=== PATIENT | female | born 1965 | race African-American/Black ===

== ENCOUNTER → 2016-06-27 | Outpatient (CLI) | payer OTHER ==
[~2016-06-27] VITALS: Ht 160 cm; Wt 94.6 kg
[~2016-06-27] MED LIST: CHOL1CAP6 PO; INSULIN HUMAN REGULAR 1,000 UNITS/10 ML VIAL ONE; LEVEMIR SQ; METF500 PO; METF500T PO; NOVOLOGP2 SQ; PROPOFOL 200 MG/20 ML AMP IV ONE; VITA10003 PO
[2016-06-27 11:58] VITALS: BP 168/74; PULSE 109; RESP 16; TEMP 97.8; O2SAT 100
[2016-06-27 13:45] VITALS: TEMP 98.6
[2016-06-27 13:55] VITALS: BP 143/66; PULSE 108; RESP 16; O2SAT 99
--- NOTE | 2016-06-28 12:21 | GIPROC ---
[facility] [address] [facility]. [facility], [address] COLONOSCOPY PROCEDURE REPORT EXAM DATE: 06/27/2016 PATIENT NAME: Cristo Will MR #: [id number] BIRTHDATE: 1965 ENDOSCOPIST: Adriana Mitchell MD ORDER #: [id number] PRIMARY CARE COORDINATOR: Lokesh Perez and Pierre Conklin STATUS: outpatient INDICATIONS: The patient is a 51 yr old female here for a colonoscopy due to patient's immediate family history of colon cancer PROCEDURE PERFORMED: Colonoscopy, diagnostic MEDICATIONS: None and Per Anesthesia. PREP QUALITY: The [place] Bowel Prep Score was Right colon 2, Mid colon 2, and Left colon 2. Total = 6. PREP TYPE:GoLytely ESTIMATED BLOOD LOSS: None CONSENT: The patient understands the risks and benefits of the procedure and understands that these risks include, but are not limited to: sedation, allergic reaction, infection, perforation and/or bleeding. Alternative means of evaluation and treatment include, among others: physical exam, x-rays, and/or surgical intervention. The patient elects to proceed with this endoscopic procedure. medical equipment was checked for proper function. Hand hygiene and appropriate measures for infection prevention was taken. After the risks, benefits and alternatives of the procedure were thoroughly explained, Informed consent was verified, confirmed and timeout was successfully executed by the treatment team. A digital exam revealed external hemorrhoids The Pentax EC-3490Li endoscope was introduced through the anus and advanced to the cecum, which was identified by both the appendix and ileocecal valve. The instrument was then slowly withdrawn as the colon was fully examined. COLON FINDINGS: The colonic mucosa appeared normal. Retroflexed views revealed internal hemorrhoids and Retroflexed views revealed small internal hemorrhoids The scope was then completely withdrawn from the patient and the procedure terminated. PROCEDURE WITHDRAWAL TIME:7minutes ADVERSE EVENTS: There were no complications. IMPRESSIONS: 1. The colonic mucosa appeared normal 2. Retroflexed views revealed internal hemorrhoids 3. Retroflexed views revealed small internal hemorrhoids 4. Revealed external hemorrhoids RECOMMENDATIONS: 1. Yearly hemoccult 2. Continue surveillance RECALL: Return 5 years Colonoscopy Adriana Mitchell MD eSigned: Adriana Mitchell MD 06/27/2016 1:46 PM cc: Mora Carpio M.D. [id number]
--- NOTE | 2016-06-28 12:21 | GIPROC ---
[facility] [address] [facility]. [facility] [place], [address] EGD PROCEDURE REPORT EXAM DATE: 06/27/2016 PATIENT NAME: Cristo Will MR #: [id number] BIRTHDATE: 1965 ATTENDING: Adriana Mitchell MD ORDER #: [id number] [employer] CLERK: Lokesh Perez and Pierre Conklin STATUS: outpatient INDICATIONS: The patient is a 51 yr old female here for an EGD due to history of esophageal reflux PROCEDURE PERFORMED: EGD w/ biopsy MEDICATIONS: None and Per Anesthesia. TOPICAL ANESTHETIC: CONSENT: The patient understands the risks and benefits of the procedure and understands that these risks include, but are not limited to: sedation, allergic reaction, infection, perforation and/or bleeding. Alternative means of evaluation and treatment include, among others: physical exam, x-rays, and/or surgical intervention. The patient elects to proceed with this endoscopic procedure. medical equipment was checked for proper function. Hand hygiene and appropriate measures for infection prevention was taken. After the risks, benefits and alternatives of the procedure were thoroughly explained, Informed consent was verified, confirmed and timeout was successfully executed by the treatment team. The patient was anesthetized with topical anesthesia and the EC-3490Li (Pedi C) endoscope was introduced through the mouth and advanced to the second portion of the duodenum. Retroflexed views revealed no abnormalities The gastroscope was then slowly withdrawn and removed. ESOPHAGUS: There was LA Class A esophagitis noted. A biopsy was performed using cold forceps. Sample sent for histology. STOMACH: There was erythematous moderate gastritis in the gastric antrum. A biopsy was performed using cold forceps. Sample sent for histology. ADVERSE EVENTS: There were no complications. IMPRESSIONS: 1. There was LA Class A esophagitis noted; biopsy was performed 2. There was erythematous gastritis in the gastric antrum; biopsy was performed 3. Retroflexed views revealed no abnormalities RECOMMENDATIONS: 1. Await biopsy results. Biopsy results will not be ready for 7-10 days. If you don't hear from us in two weeks, call our office for biopsy results. 2. Anti-reflux regimen 3. Continue PPI PATIENT CONDITION: stable DISPOSITION: Home REPEAT EXAM: Return 3 years EGD pending biopsy results Adriana Mitchell MD eSigned: Adriana Mitchell MD 06/27/2016 1:43 PM cc: Mora Carpio M.D. [id number]
== END ==
LOC: HEND 11:05
PROVIDERS: ATTEND Internal Medicine Gastroenterology
DX: Z12.11 Encounter for screening for malignant neoplasm of colon (principal); Z80.0 Family history of malignant neoplasm of digestive organs; K64.4 Residual hemorrhoidal skin tags; K64.8 Other hemorrhoids; K29.50 Unspecified chronic gastritis without bleeding; K20.9 Esophagitis, unspecified; D50.9 Iron deficiency anemia, unspecified; E11.9 Type 2 diabetes mellitus without complications
CPT/HCPCS: 00810; 43239; 45378; 82948; 88305; 88312; J1815

== ENCOUNTER 2017-03-25 14:45 | Emergency (ER) | payer OTHER ==
[~2017-03-25] VITALS: Ht 160 cm; Wt 100.0 kg
[~2017-03-25 14:45] MED LIST changes: -CHOL1CAP6 PO; -INSULIN HUMAN REGULAR 1,000 UNITS/10 ML VIAL ONE; -METF500 PO; -PROPOFOL 200 MG/20 ML AMP IV ONE
[2017-03-25 15:00] VITALS: BP 136/82; PULSE 130; RESP 20; TEMP 100; O2SAT 99
[2017-03-25] MEDS ORDERED: triseba SQ (15:30)
--- NOTE | 2017-03-25 15:59 | PD ---
HPI Chief Complaint: Cold / Flu Symptoms Time Seen by Provider: 15:47 Travel History International Travel<30 days: No Contact w/Intl Traveler<30days: No Traveled to known affect area: No History of Present Illness HPI This 51-year-old female says she's been sick for about 2 days. Says she's had a sore throat and a cough. She has vomited twice and has had some loose stools. She feels very tired and achy. She has a history of diabetes for 20 years. She does not smoke. She feels like she's had a fever at home. PFSH Past Medical History Anemia: Yes Cancer: No Cardiovascular Problems: No Diabetes: Yes Patient Takes Glucophage: No Diminished Hearing: No Endocrine: No GERD: Yes Glaucoma: No Genitourinary: No Hepatitis: No Hiatal Hernia: No Hypertension: No Immune Disorder: No Musculoskeletal: No Neurologic: No Psychiatric: No Reproductive: No Respiratory: Yes (pneumonia) Thyroid Disease: No Tetanus Vaccination: < 5 Years Influenza Vaccination: Yes ?: Not Menopausal: Yes : 0 Past Surgical History Abdominal Surgery: No AICD: No Cardiac Surgery: No Endocrine Surgery: No Genitourinary Surgery: No Gynecologic Surgery: Yes (HYSTERECTOMY IN 2007) Hysterectomy: Yes Joint Replacement: No Oral Surgery: Yes (L side [place] teeth pulled -JAN 2014) Pacemaker: No Thoracic Surgery: No Other Surgery: Yes Social History Alcohol Use: Yes (occassionally ) Tobacco Use: No Substance Use: No Allergies-Medications (Allergen,Severity, Reaction): Coded Allergies: No Known Allergies (Verified Adverse Reaction, Unknown, 03/25/17) Reported Meds & Prescriptions Reported Meds & Active Scripts Active Reported [triseba] Unit SQ WEEKLY Novolog Inj (Insulin Aspart) 1,000 Unit/10 Ml Vial 0 SQ DIRECTED Sliding Scale as directed. Metformin (Metformin HCl) 500 Mg Tab 500 Mg PO BIDPC With meals Levemir Inj (Insulin Detemir) 1,000 unit/ 10 ML Vial 60 Units SQ HS Do not mix with any other Insulin. Review of Systems General / Constitutional: Positive: Fever, Chills Eyes: No: Drainage HENT: Positive: Headaches Cardiovascular: No: Chest Pain or Discomfort Respiratory: Positive: Cough Gastrointestinal: Positive: Vomiting, Diarrhea Genitourinary: No: Urgency Musculoskeletal: Positive: Myalgias Skin: No Rash Neurologic: Positive: Weakness Endocrine: No: Heat Intolerance Hematologic/Lymphatic: No: Easy Bruising Physical Exam Narrative GENERAL: Well-developed female. Heart rate is 130 SKIN: Focused skin assessment warm/dry. HEAD: Atraumatic. Normocephalic. EYES: Pupils equal and round. No scleral icterus. No injection or drainage. ENT: No nasal bleeding or discharge. Mucous membranes pink and moist. NECK: Trachea midline. No JVD. CARDIOVASCULAR: Regular rate and rhythm. No murmur appreciated. RESPIRATORY: No accessory muscle use. Clear to auscultation. Breath sounds equal bilaterally. GASTROINTESTINAL: Abdomen soft, non-tender, nondistended. Hepatic and splenic margins not palpable. MUSCULOSKELETAL: No obvious deformities. No clubbing. No cyanosis. No edema. NEUROLOGICAL: Awake and alert. No obvious cranial nerve deficits. Motor grossly within normal limits. Normal speech. PSYCHIATRIC: Appropriate mood and affect; insight and judgment normal. Data Data Last Documented VS Vital Signs Date Time Temp Pulse Resp B/P (MAP) Pulse Ox O2 Delivery O2 Flow Rate FiO2 03/25/17 15:30 18 99 Room Air 03/25/17 15:00 100.0 130 136/82 (100) Orders Orders Sepsis Workup Initiated (03/25/17 ) Complete Blood Count With Diff (03/25/17 15:54) Comprehensive Metabolic Panel (03/25/17 15:54) Lactic Acid Sepsis Protocol (03/25/17 15:54) Urinalysis - C+S If Indicated (03/25/17 15:54) Influenzae A/B Antigen (03/25/17 15:54) Blood Culture (03/25/17 15:54) Chest, Single Ap (03/25/17 15:54) Blood Glucose (03/25/17 15:54) Ecg Monitoring (03/25/17 15:54) Iv Access Insert/Monitor (03/25/17 15:54) Oximetry (03/25/17 15:54) Oxygen Administration (03/25/17 15:54) Ondansetron Inj (Zofran Inj) (03/25/17 16:00) Sodium Chlor 0.9% 1000 Ml Inj (Ns 1000 M (03/25/17 16:00) Sodium Chlor 0.9% 1000 Ml Inj (Ns 1000 M (03/25/17 16:00) Acetaminophen (Tylenol) (03/25/17 16:00) MDM Medical Decision Making Medical Screen Exam Complete: Yes Emergency Medical Condition: Yes Medical Record Reviewed: Yes Differential Diagnosis Differential includes influenza, pneumonia, sepsis Narrative Course Initial workup and IV fluids have been ordered Tavo Murcia MD Mar 25, 2017 15:59
[2017-03-25] MEDS ORDERED: ACETAMINOPHEN 325 MG TAB PO ONE (16:00)
[2017-03-25] MEDS ORDERED: SODIUM CHLOR 0.9% 1000 ML INJ 1,000 ML IV ONE ×2 (16:00)
[2017-03-25] MEDS ORDERED: ONDANSETRON HCL 4 MG/2 ML VIAL IV PUSH ONE (16:00)
[2017-03-25 16:10] VITALS: O2SAT 98
--- NOTE | 2017-03-25 16:33 | PD ---
Physical Exam Narrative Patient was seen by ED physician and signed out to me. Data Data Last Documented VS Vital Signs Date Time Temp Pulse Resp B/P (MAP) Pulse Ox O2 Delivery O2 Flow Rate FiO2 03/25/17 17:29 114 18 188/73 (111) 94 03/25/17 16:10 Room Air 03/25/17 15:00 100.0 Orders Orders Sepsis Workup Initiated (03/25/17 ) Complete Blood Count With Diff (03/25/17 15:54) Comprehensive Metabolic Panel (03/25/17 15:54) Lactic Acid Sepsis Protocol (03/25/17 15:54) Urinalysis - C+S If Indicated (03/25/17 15:54) Influenzae A/B Antigen (03/25/17 15:54) Blood Culture (03/25/17 15:54) Chest, Single Ap (03/25/17 15:54) Blood Glucose (03/25/17 15:54) Ecg Monitoring (03/25/17 15:54) Iv Access Insert/Monitor (03/25/17 15:54) Oximetry (03/25/17 15:54) Oxygen Administration (03/25/17 15:54) Ondansetron Inj (Zofran Inj) (03/25/17 16:00) Sodium Chlor 0.9% 1000 Ml Inj (Ns 1000 M (03/25/17 16:00) Sodium Chlor 0.9% 1000 Ml Inj (Ns 1000 M (03/25/17 16:00) Acetaminophen (Tylenol) (03/25/17 16:00) Chest, Single Ap (03/25/17 17:21) Labs Laboratory Tests Test 03/25/17 16:20 03/25/17 16:52 03/25/17 17:15 Blood Urea Nitrogen 13 MG/DL Creatinine 0.74 MG/DL Random Glucose 133 MG/DL Total Protein 7.5 GM/DL Albumin 3.1 GM/DL Calcium Level 8.6 MG/DL Alkaline Phosphatase 137 U/L Aspartate Amino Transf (AST/SGOT) 42 U/L Alanine Aminotransferase (ALT/SGPT) 72 U/L Total Bilirubin 0.3 MG/DL Sodium Level 140 MEQ/L Potassium Level 3.6 MEQ/L Chloride Level 106 MEQ/L Carbon Dioxide Level 23.9 MEQ/L Anion Gap 10 MEQ/L Estimat Glomerular Filtration Rate 101 ML/MIN White Blood Count 10.0 TH/MM3 Red Blood Count 4.61 MIL/MM3 Hemoglobin 10.8 GM/DL Hematocrit 33.8 % Mean Corpuscular Volume 73.4 FL Mean Corpuscular Hemoglobin 23.3 PG Mean Corpuscular Hemoglobin Concent 31.8 % Red Cell Distribution Width 15.0 % Platelet Count 338 TH/MM3 Mean Platelet Volume 8.3 FL Neutrophils (%) (Auto) 83.1 % Lymphocytes (%) (Auto) 8.6 % Monocytes (%) (Auto) 7.3 % Eosinophils (%) (Auto) 0.6 % Basophils (%) (Auto) 0.4 % Neutrophils # (Auto) 8.3 TH/MM3 Lymphocytes # (Auto) 0.9 TH/MM3 Monocytes # (Auto) 0.7 TH/MM3 Eosinophils # (Auto) 0.1 TH/MM3 Basophils # (Auto) 0.0 TH/MM3 CBC Comment AUTO DIFF Differential Comment AUTO DIFF CONFIRMED Lactic Acid Level 1.3 mmol/L Urine Color YELLOW Urine Turbidity CLEAR Urine pH 8.0 Urine Specific [place] 1.021 Urine Protein TRACE mg/dL Urine Glucose (UA) NEG mg/dL Urine Ketones NEG mg/dL Urine Occult Blood NEG Urine Nitrite NEG Urine Bilirubin NEG Urine Leukocyte Esterase NEG Urine RBC 0-3 /hpf Urine WBC 0-2 /hpf Urine Squamous Epithelial Cells 0-5 /hpf Microscopic Urinalysis Comment CATH-CULT NOT IND MDM Supervised Visit with KENNETH: No Interpretation(s) Last Impressions Chest X-Ray 03/25/17 1554 Signed Impressions: Service Date/Time: Saturday, March 25, 2017 16:24 - CONCLUSION: Hypoaerated lungs with minimal right midlung airspace disease. Arash Alcantar MD 1722 PM. CBC with WBC 10.0. Hemoglobin 10.8 hematocrit 33.8. MCV 73.4. 83 neutrophil. CMP within normal limit. Lactic acid 1.3. LFTs mildly elevated. Influenza AB antigen negative. 1752 PM. Repeat chest x-ray shows hypoaerated lungs without consolidation. UA is negative. Diagnosis Primary Impression: Viral syndrome Patient Instructions: General Instructions Additional Instruction: Tylenol and Advil as needed for headache, fever, aching pain. [id number] cough medication as needed. Follow-up with personal physician. Return if persistent problem or worse. Z-Alexey if persistent productive cough Scripts Azithromycin (Zithromax Z-Alexey) 250 Mg Dspk 250 MG PO DIRECTED for Infection, #1 DSPK 0 Refills 500 MG (2 tabs) day 1, then 1 tab days 2-5. Prov: Abdiel Gandhi MD 03/25/17 Disposition: 01 DISCHARGE HOME Condition: Stable Abdiel Gandhi MD Mar 25, 2017 16:33
[2017-03-25 16:39] LABS: CHLORIDE 106 MEQ/L (98-107); POTASSIUM 3.6 MEQ/L (3.5-5.1); SODIUM (NA) 140 MEQ/L (136-145)
[2017-03-25 16:43] LABS: ANION GAP 10 MEQ/L (5-15); BICARBONATE 23.9 MEQ/L (21.0-32.0)
[2017-03-25 16:44] LABS: BLOOD UREA NITROGEN 13 MG/DL (7-18)
--- NOTE | 2017-03-25 16:45 | RADRPT ---
EXAM DATE/TIME: 03/25/2017 16:24 [facility] COMPARISON: CHEST SINGLE AP, January 26, 2014, 23:48. INDICATIONS : Fever, cough. MEDICAL HISTORY : None. SURGICAL HISTORY : None. ENCOUNTER: Initial ACUITY: 1 day PAIN SCORE: 0/10 LOCATION: Bilateral chest FINDINGS: The lungs are hypoaerated. Subsegmental airspace disease is identified in the right midlung. Left dexter g appears clear. Heart and mediastinal structures appear stable. CONCLUSION: Hypoaerated lungs with minimal right midlung airspace disease. Arash Alcantar MD on March 25, 2017 at 16:41 Board Certified Radiologist. This report was verified electronically.
[2017-03-25 16:46] LABS: ALT (GPT) 72 U/L (10-53); AST (GOT) 42 U/L (15-37)
[2017-03-25 16:47] LABS: GLOMERULAR FILTRATION RATE 101 ML/MIN (>89); TOTAL BILIRUBIN ADULT 0.3 MG/DL (0.2-1.0)
[2017-03-25 16:48] LABS: ALKALINE PHOSPHATASE 137 U/L (45-117)
[2017-03-25 17:03] LABS: AUTOMATED NEUTROPHIL # 8.3 TH/MM3 (1.8-7.7); BASOPHIL % 0.4 % (0.0-2.0); EOSINOPHIL # 0.1 TH/MM3 (0-0.4); EOSINOPHIL % 0.6 % (0.0-4.0); HEMATOCRIT 33.8 % (35.0-46.0); LYMPH % 8.6 % (9.0-44.0); LYMPHOCYTE # 0.9 TH/MM3 (1.0-4.8); MEAN CELL VOLUME 73.4 FL (80.0-100.0); MEAN CORPUSCULAR HEMOGLOBIN 23.3 PG (27.0-34.0); MEAN CORPUSCULAR HGB CONC 31.8 % (32.0-36.0); MONO % 7.3 % (0.0-8.0); NEUT % 83.1 % (16.0-70.0); PLATELET COUNT 338 TH/MM3 (150-450); RED BLOOD COUNT 4.61 MIL/MM3 (4.00-5.30)
[2017-03-25 17:08] LABS: HEMO FLAGS AUTO DIFF
[2017-03-25 17:29] VITALS: BP 188/73; PULSE 114; RESP 18; O2SAT 94
[2017-03-25 17:36] LABS: BLOOD, URINE NEG (NEG); GLUCOSE,URINE NEG (NEG); KETONE, URINE NEG (NEG); NITRITE,URINE NEG (NEG)
[2017-03-25 17:41] LABS: URINE COLOR YELLOW (YELLW/STRAW)
[2017-03-25 17:42] LABS: COMMENT (UR) CATH-CULT NOT IND; CULTURE IF INDICATED CATH CULTURE NOT IND; RBC, URINE 0-3 /hpf (0-3); SQUAMOUS EPITHELIAL CELL URINE 0-5 /hpf (0-5); WBC, URINE 0-2 /hpf (0-5)
[2017-03-25 17:45] LABS: SCAN/DIFF AUTO DIFF CONFIRMED
--- NOTE | 2017-03-25 17:46 | RADRPT ---
EXAM DATE/TIME: 03/25/2017 17:30 [facility] COMPARISON: CHEST SINGLE AP, March 25, 2017, 16:24. INDICATIONS : Evaluate for pneumonia - fever. MEDICAL HISTORY : None. SURGICAL HISTORY : None. ENCOUNTER: Subsequent ACUITY: 1 day PAIN SCORE: 0/10 LOCATION: Bilateral chest FINDINGS: A single view of the chest demonstrates the lungs to be symmetrically, but under aerated with no acut e infiltrate. Heart size is borderline but well compensated. Degenerative spurring at multiple dorsal levels. CONCLUSION: Hypoinflation with no acute cardiopulmonary process. jS Lino MD on March 25, 2017 at 17:41 Board Certified Radiologist. This report was verified electronically.
[2017-03-25 18:00] VITALS: TEMP 99.3
[2017-03-25] MEDS ORDERED: ZITHTAB PO (18:00)
== END 2017-03-25 18:46 | disposition home or self-care (01) ==
LOC: PHED 14:45
DX: B34.9 Viral infection, unspecified (principal); E11.9 Type 2 diabetes mellitus without complications; Z79.4 Long term (current) use of insulin
CPT/HCPCS: 71010; 80053; 81001; 83605; 85025; 87040; 87804; 96361; 96374; 99284; J2405; J7030

== ENCOUNTER 2017-04-03 16:44 | Inpatient (IN) | payer OTHER ==
[~2017-04-03] VITALS: Ht 160 cm; Wt 100.6 kg
[~2017-04-03 16:44] MED LIST changes: -VITA10003 PO; +ZITHTAB PO; +triseba SQ
[2017-04-03 17:07] VITALS: BP 198/87; PULSE 108; RESP 22; TEMP 97.1; O2SAT 97
[2017-04-03 20:11] VITALS: BP 201/84
[2017-04-03] MEDS ORDERED: SODIUM CHLOR 0.9% 1000 ML INJ 1,000 ML IV ONE ×2 (20:22→20:52)
[2017-04-03] MEDS ORDERED: METOCLOPRAMIDE HCL 10 MG/2 ML VIAL IV PUSH ONE (20:30)
[2017-04-03] MEDS ORDERED: KETOROLAC TROMETHAMINE 30 MG/ML (IVP) VIAL IV PUSH ONE (20:30)
[2017-04-03 21:36] LABS: AUTOMATED NEUTROPHIL # 13.4 TH/MM3 (1.8-7.7); BASOPHIL % 0.3 % (0.0-2.0); EOSINOPHIL % 0.1 % (0.0-4.0); HEMATOCRIT 31.2 % (35.0-46.0); HEMOGLOBIN 9.9 GM/DL (11.6-15.3); LYMPH % 8.3 % (9.0-44.0); LYMPHOCYTE # 1.3 TH/MM3 (1.0-4.8); MEAN CORPUSCULAR HEMOGLOBIN 23.7 PG (27.0-34.0); MEAN CORPUSCULAR HGB CONC 31.6 % (32.0-36.0); MEAN PLATELET VOLUME 8.6 FL (7.0-11.0); MONO % 4.7 % (0.0-8.0); MONOCYTE # 0.7 TH/MM3 (0-0.9); NEUT % 86.6 % (16.0-70.0); PLATELET COUNT 385 TH/MM3 (150-450); RED BLOOD COUNT 4.16 MIL/MM3 (4.00-5.30); RED CELL DISTRIBUTION WIDTH 16.1 % (11.6-17.2); WHITE BLOOD COUNT 15.5 TH/MM3 (4.0-11.0)
[2017-04-03 21:45] LABS: INTERNATIONAL NORMALIZED RATIO 1.1 RATIO; PROTHROMBIN TIME - PATIENT 10.9 SEC (9.8-11.6)
[2017-04-03 21:55] LABS: ALBUMIN 3.2 GM/DL (3.4-5.0); ALT (GPT) 36 U/L (10-53); AST (GOT) 13 U/L (15-37); BICARBONATE 20.3 MEQ/L (21.0-32.0); BLOOD UREA NITROGEN 17 MG/DL (7-18); CHLORIDE 107 MEQ/L (98-107); CREATININE 0.86 MG/DL (0.50-1.00); GLOMERULAR FILTRATION RATE 85 ML/MIN (>89); GLUCOSE,RANDOM 193 MG/DL (74-106); SODIUM (NA) 139 MEQ/L (136-145)
[2017-04-03 21:58] LABS: ALKALINE PHOSPHATASE 121 U/L (45-117); TOTAL BILIRUBIN ADULT 0.2 MG/DL (0.2-1.0); TOTAL PROTEIN 7.9 GM/DL (6.4-8.2)
[2017-04-03 22:13] LABS: BILIRUBIN, URINE NEG (NEG); BLOOD, URINE NEG (NEG); GLUCOSE,URINE NEG (NEG); KETONE, URINE 10 mg/dL (NEG); MUCUS URINE FEW /lpf (OCC); NITRITE,URINE NEG (NEG); PH, URINE 6.5 (5.0-8.5); SQUAMOUS EPITHELIAL CELL URINE 1 /hpf (0-5); URINE COLOR YELLOW (YELLW/STRAW); URINE LEUKOCYTE ESTERASE NEG (NEG)
[2017-04-03 22:17] VITALS: PULSE 84; RESP 18; O2SAT 97
[2017-04-03 22:34] VITALS: BP 174/77; PULSE 120; RESP 18; O2SAT 97
--- NOTE | 2017-04-03 23:18 | RADRPT ---
EXAM DATE/TIME: 04/03/2017 22:02 [facility] COMPARISON: No previous studies available for comparison. INDICATIONS : Cephalgia. RADIATION DOSE: 56.35 CTDIvol (mGy) MEDICAL HISTORY : None SURGICAL HISTORY : Hysterectomy. ENCOUNTER: Initial ACUITY: 1 day PAIN SCALE: 3/10 LOCATION: Bilateral cranial TECHNIQUE: Multiple contiguous axial images were obtained of the head. Using automated exposure control and adj ustment of the mA and/or kV according to patient size, radiation dose was kept as low as reasonably a chievable to obtain optimal diagnostic quality images. DICOM format image data is available electro nically for review and comparison. FINDINGS: CEREBRUM: The ventricles are normal for age. No evidence of midline shift, mass lesion, hemorrhage or acute in farction. No extra-axial fluid collections are seen. POSTERIOR FOSSA: The cerebellum and brainstem are intact. The 4th ventricle is midline. The cerebellopontine angle i s unremarkable. EXTRACRANIAL: The visualized portion of the orbits is intact. Air-fluid level in the left sphenoid sinus. SKULL: The calvaria is intact. No evidence of skull fracture. CONCLUSION: 1. No acute findings in the brain. 2. Left sphenoid sinus disease. Brandon Pope MD on April 03, 2017 at 23:15 Board Certified Radiologist. This report was verified electronically.
[2017-04-03] MEDS ORDERED: MORPHINE SULFATE 2 MG/ML INJ IV PUSH ONE (23:45)
[2017-04-04] VITALS (7 sets, daily range): BP systolic 131–187; BP diastolic 63–91; PULSE 110–119; RESP 16–24; TEMP 97.6–99.9; O2SAT 95–100
[2017-04-04] MEDS ORDERED: cefTRIAXone INJ 2,000 MG in SODIUM CHLORIDE 0.9% INJ 100 ML IV ONE (00:15)
[2017-04-04] MEDS ORDERED: ACYCLOVIR INJ 500 MG in SODIUM CHLORIDE 0.9% INJ 100 ML IV ONE (00:15)
[2017-04-04] MEDS ORDERED: VANCOMYCIN INJ 1,000 MG in SODIUM CHLOR 0.9% 250 ML INJ 250 ML IV ONE (00:15)
--- NOTE | 2017-04-04 00:15 | PD ---
HPI Chief Complaint: Headache Time Seen by Provider: 20:17 Travel History International Travel<30 days: No Contact w/Intl Traveler<30days: No Traveled to known affect area: No History of Present Illness HPI 51-year-old female with history of diabetes, hypertension, brought in by ambulance for evaluation of severe headache. Patient reports that the headache started suddenly at around 3:00 PM. She is complaining of severe diffuse head pressure as well as neck stiffness. Pain is constant, worse with movements, associated with photophobia and nausea. She has not vomited. She is unsure if she has had fever. She was seen in the Emergency Department 9 days ago and was diagnosed with a viral illness. She does not usually get headaches and has no history of migraines. No IVDU. PFSH Past Medical History Anemia: Yes Cancer: No Cardiovascular Problems: No Diabetes: Yes (METFORMIN) Patient Takes Glucophage: Yes Diminished Hearing: No Endocrine: No GERD: Yes Glaucoma: No Genitourinary: No Hepatitis: No Hiatal Hernia: No Hypertension: No Immune Disorder: No Medical other: No Musculoskeletal: No Neurologic: No Psychiatric: No Reproductive: No Respiratory: Yes (pneumonia) Thyroid Disease: No Tetanus Vaccination: Unknown Influenza Vaccination: Yes ?: Not Menopausal: Yes : 0 Past Surgical History Abdominal Surgery: No AICD: No Cardiac Surgery: No Endocrine Surgery: No Genitourinary Surgery: No Gynecologic Surgery: Yes (HYSTERECTOMY IN 2007) Hysterectomy: Yes Joint Replacement: No Oral Surgery: Yes (L side [place] teeth pulled -JAN 2014) Pacemaker: No Thoracic Surgery: No Other Surgery: Yes Social History Alcohol Use: Yes (occassionally ) Tobacco Use: No Substance Use: No Allergies-Medications (Allergen,Severity, Reaction): Coded Allergies: No Known Allergies (Verified Adverse Reaction, Unknown, 04/03/17) Reported Meds & Prescriptions Reported Meds & Active Scripts Active Zithromax Z-Alexey (Azithromycin) 250 Mg Dspk 250 Mg PO DIRECTED 500 MG (2 tabs) day 1, then 1 tab days 2-5. Reported [triseba] Unit SQ WEEKLY Novolog Inj (Insulin Aspart) 1,000 Unit/10 Ml Vial 0 SQ DIRECTED Sliding Scale as directed. Metformin (Metformin HCl) 500 Mg Tab 500 Mg PO BIDPC With meals Levemir Inj (Insulin Detemir) 1,000 unit/ 10 ML Vial 60 Units SQ HS Do not mix with any other Insulin. Review of Systems Except as stated in HPI: all other systems reviewed are Neg Physical Exam Narrative GENERAL: Well-developed, well-nourished, overweight, moderate distress secondary to pain. SKIN: Focused skin assessment warm/dry. No rash. HEAD: Atraumatic. Normocephalic. EYES: Pupils equal and round. No scleral icterus. No injection or drainage. ENT: Mucous membranes pink and moist. NECK: Trachea midline. No JVD. Moderate nuchal rigidity. CARDIOVASCULAR: Tachycardic, rate 115, regular. No murmur. RESPIRATORY: No accessory muscle use. Clear to auscultation. Breath sounds equal bilaterally. GASTROINTESTINAL: Abdomen soft, non-tender, nondistended. MUSCULOSKELETAL: No obvious deformities. No clubbing. No cyanosis. No edema. NEUROLOGICAL: Awake and alert. No obvious cranial nerve deficits. Motor grossly within normal limits. Normal speech. PSYCHIATRIC: Appropriate mood and affect; insight and judgment normal. Data Data Last Documented VS Vital Signs Date Time Temp Pulse Resp B/P (MAP) Pulse Ox O2 Delivery O2 Flow Rate FiO2 04/03/17 22:34 120 18 174/77 (109) 97 04/03/17 22:17 Room Air 04/03/17 17:07 97.1 Orders Orders Complete Blood Count With Diff (04/03/17 20:22) Comprehensive Metabolic Panel (04/03/17 20:22) Beta Hydroxybutyrate (Acetone) (04/03/17 20:22) Urinalysis - C+S If Indicated (04/03/17 20:22) Ecg Monitoring (04/03/17 20:22) Iv Access Insert/Monitor (04/03/17 20:22) Oximetry (04/03/17 20:22) NPO (04/03/17 20:22) Sodium Chlor 0.9% 1000 Ml Inj (Ns 1000 M (04/03/17 20:22) Sodium Chlor 0.9% 1000 Ml Inj (Ns 1000 M (04/03/17 20:52) Sodium Chloride 0.9% Flush (Ns Flush) (04/03/17 20:30) Ct Brain W/O Iv Contrast(Rout) (04/03/17 ) Metoclopramide Inj (Reglan Inj) (04/03/17 20:30) Ketorolac Inj (Toradol Inj) (04/03/17 20:30) Prothrombin Time / Inr (Pt) (04/03/17 20:22) Act Partial Throm Time (Ptt) (04/03/17 20:22) Influenzae A/B Antigen (04/03/17 20:24) Beta Hcg (Quant/Titer) (04/03/17 20:25) Morphine Inj (Morphine Inj) (04/03/17 23:45) Ceftriaxone Inj (Rocephin Inj) (04/04/17 00:15) Vancomycin Inj (Vancomycin Inj) (04/04/17 00:15) Acyclovir Inj (Zovirax Inj) (04/04/17 00:15) Admit Order (Ed Use Only) (04/04/17 00:18) Labs Laboratory Tests Test 04/03/17 21:15 04/03/17 22:00 White Blood Count 15.5 TH/MM3 Red Blood Count 4.16 MIL/MM3 Hemoglobin 9.9 GM/DL Hematocrit 31.2 % Mean Corpuscular Volume 75.0 FL Mean Corpuscular Hemoglobin 23.7 PG Mean Corpuscular Hemoglobin Concent 31.6 % Red Cell Distribution Width 16.1 % Platelet Count 385 TH/MM3 Mean Platelet Volume 8.6 FL Neutrophils (%) (Auto) 86.6 % Lymphocytes (%) (Auto) 8.3 % Monocytes (%) (Auto) 4.7 % Eosinophils (%) (Auto) 0.1 % Basophils (%) (Auto) 0.3 % Neutrophils # (Auto) 13.4 TH/MM3 Lymphocytes # (Auto) 1.3 TH/MM3 Monocytes # (Auto) 0.7 TH/MM3 Eosinophils # (Auto) 0.0 TH/MM3 Basophils # (Auto) 0.0 TH/MM3 CBC Comment DIFF FINAL Differential Comment Prothrombin Time 10.9 SEC Prothromb Time International Ratio 1.1 RATIO Activated Partial Thromboplast Time 24.7 SEC Blood Urea Nitrogen 17 MG/DL Creatinine 0.86 MG/DL Random Glucose 193 MG/DL Total Protein 7.9 GM/DL Albumin 3.2 GM/DL Calcium Level 9.0 MG/DL Alkaline Phosphatase 121 U/L Aspartate Amino Transf (AST/SGOT) 13 U/L Alanine Aminotransferase (ALT/SGPT) 36 U/L Total Bilirubin 0.2 MG/DL Sodium Level 139 MEQ/L Potassium Level 3.7 MEQ/L Chloride Level 107 MEQ/L Carbon Dioxide Level 20.3 MEQ/L Anion Gap 12 MEQ/L Estimat Glomerular Filtration Rate 85 ML/MIN Human Chorionic Gonadotropin, Quant 3 MIU/ML B-Hydroxybutyrate 0.21 MMOL/L Urine Color YELLOW Urine Turbidity HAZY Urine pH 6.5 Urine Specific [place] 1.026 Urine Protein 30 mg/dL Urine Glucose (UA) NEG mg/dL Urine Ketones 10 mg/dL Urine Occult Blood NEG Urine Nitrite NEG Urine Bilirubin NEG Urine Urobilinogen LESS THAN 2.0 MG/DL Urine Leukocyte Esterase NEG Urine RBC 2 /hpf Urine WBC 2 /hpf Urine Squamous Epithelial Cells 1 /hpf Urine Mucus FEW /lpf Microscopic Urinalysis Comment CULT NOT INDICATED MDM Medical Decision Making Medical Screen Exam Complete: Yes Emergency Medical Condition: Yes Medical Record Reviewed: Yes Differential Diagnosis Viral meningitis, bacterial meningitis, SAH, tension headache, cluster headache , migraine headache, intracranial abnormality, hypertensive crisis Narrative Course Initial vital signs show heart rate 108, blood pressure 198/87, pulse ox 97% on room air, oral temp of 97.1F. Repeat vital signs after 2 L of normal saline IV, IV Reglan, and IV Toradol show heart rate of 120, blood pressure 174/77, pulse ox 97% on room air. CBC: WBC 15.5, hemoglobin 9.9, hematocrit 31.2, platelets 35, neutrophils 87%. CMP is remarkable for random glucose 193, bicarbonate 20.3, otherwise unremarkable. Beta hydroxybutyrate is 0.21. Coags are normal. UA shows 30 protein, 10 ketones, not suggestive of UTI. Influenza is negative. CT head: No acute findings in the brain. Left sphenoid sinus disease. Patient and the patient's family were made aware of all findings. The patient was given IV Toradol, IV Reglan, and 2 L normal saline IV. She states her headache has improved, however is still present, yet mild. States that her neck stiffness is the same and is severe. I explained to her that the next step in her workup would be a lumbar puncture to evaluate for possible meningitis or subarachnoid hemorrhage. This was discussed in detail with the patient and the patient's family and she agrees to proceed with the procedure. I was unsuccessful in performing this procedure, likely secondary to the patient 's body habitus, making palpation of landmarks very difficult. Plan at this point is to start the patient on empiric coverage for meningitis with IV Rocephin, IV vancomycin, and IV acyclovir, and have her admitted for further treatment and evaluation of intractable headache, intractable neck stiffness, rule out meningitis. Case discussed with [facility] hospitalist Dr. Millard. The patient will be admitted to their service under Dr. Fry. Procedures Procedure Narrative Lumbar puncture: Informed consent obtained. LUMBAR PUNCTURE: The patient was placed in the left lateral decubitus position. The lumbar area of the back was prepped with Betadine and sterilely draped. The L3 -- L4 interspace was infiltrated with 1% lidocaine plain. Number 24 gauge LP needle was used to attempt this procedure. 3 attempts were made without success. Diagnosis Primary Impression: Intractable headache Qualified Codes: R51 - Headache Additional Impressions: Neck stiffness Leukocytosis Qualified Codes: D72.829 - Elevated white blood cell count, unspecified Rule out meningitis Admitting Information Admitting Physician Requests: Admit Aaron Maki MD Apr 04, 2017 00:15
[2017-04-04] MEDS ORDERED: Vancomycin Consult Pharmacy 1 EA OTHER SCH (00:30)
[2017-04-04] MEDS ORDERED: GLUCAGON 1 MG/ML VIAL OTHER PRN (00:45)
[2017-04-04] MEDS ORDERED: VANCOMYCIN INJ 2,000 MG in SODIUM CHLORID 0.9% 500 ML INJ 500 ML IV ONE ×2 (00:45→04:00)
[2017-04-04] MEDS ORDERED: DEXTROSE 50% IN WATER 50 ML VIAL(D50) IV PUSH PRN (00:45)
[2017-04-04] MEDS ORDERED: ACYCLOVIR INJ 1,000 MG in SODIUM CHLORIDE 0.9% INJ 150 ML IV SCH ×2 (02:00→08:00)
[2017-04-04] MEDS: KETOROLAC TROMETHAMINE 30 MG/ML (IVP) VIAL IV PUSH PRN ×2 (06:32→08:19)
--- NOTE | 2017-04-04 08:20 | HHI.HP ---
HPI Service [facility] Hospitalists Primary Care Physician Mora Carpio MD Admission Diagnosis Intractable headache/neck stiffness, leukocytosis Chief Complaint: Severe Headache and neck stiffness Travel History International Travel<30 Days: No Contact w/Intl Traveler <30 Da: No Traveled to Known Affected Are: No History of Present Illness This is a 51-year-old female patient with past medical history which includes diabetes mellitus on insulin and pills, GERD, obesity and anemia. Patient was brought in by ambulance for evaluation of severe headache. Patient reports that the headache started suddenly at around 3:00 PM on 04/03/2017. She reported severe diffuse head pressure as well as neck stiffness. Pain is constant, worse with movements, associated with photophobia and nausea. She is unsure if she has had fever. She was seen in the Emergency Department 9 days ago and was diagnosed with a viral illness. At that time patient had chills, fever, nausea and vomiting. She does not usually get headaches and has no history of migraines. 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 Review of Systems Constitutional: COMPLAINS OF: Fever, Chills, DENIES: Fatigue Eyes: DENIES: Blurred vision, Diplopia, Vision loss Respiratory: DENIES: Cough, Sputum production, Shortness of breath Cardiovascular: DENIES: Chest pain, Palpitations, Dyspnea on Exertion, Lower Extremity Edema Gastrointestinal: DENIES: Abdominal pain, Constipation, Diarrhea, Vomiting Musculoskeletal: COMPLAINS OF: Neck pain Neurologic: COMPLAINS OF: Headache, DENIES: Abnormal gait, Localized weakness Psychiatric: DENIES: Anxiety, Confusion, Depression Past Family Social History Past Medical History diabetes mellitus on insulin and pills, GERD, obesity and anemia Past Surgical History Hysterectomy and oral surgery with tooth extraction Reported Medications Zithromax Z-Alexey (Azithromycin) 250 Mg Dspk 250 Mg PO DIRECTED 500 MG (2 tabs) day 1, then 1 tab days 2-5. [triseba] Unit SQ WEEKLY Novolog Inj (Insulin Aspart) 1,000 Unit/10 Ml Vial 0 SQ DIRECTED Sliding Scale as directed. Metformin (Metformin HCl) 500 Mg Tab 500 Mg PO BIDPC With meals Levemir Inj (Insulin Detemir) 1,000 unit/ 10 ML Vial 60 Units SQ HS Do not mix with any other Insulin. Allergies: Coded Allergies: No Known Allergies (Verified Allergy, Unknown, 04/05/17) Active Ordered Medications Current Medications Medications (Trade) Dose Ordered Sig/Jered Route Start Time Stop Time Status Last Admin (NS Flush) 2 ml UNSCH PRN IVF 04/03/17 20:30 Pharmacy Profile Note 0 ml @ 0 mls/hr UNSCH OTHER 04/04/17 00:30 Ceftriaxone Sodium 2000 mg/ Sodium Chloride 100 ml @ 200 mls/hr Q24H IV 04/05/17 01:00 (Toradol Inj) 30 mg Q6H PRN IV PUSH 04/04/17 00:45 04/09/17 00:44 04/04/17 06:32 (D50w (Vial) Inj) 50 ml UNSCH PRN IV PUSH 04/04/17 00:45 (Glucagon Inj) 1 mg UNSCH PRN OTHER 04/04/17 00:45 (NovoLOG SUPPLEMENTAL SCALE) 1 ACHS SLIDING SCALE SQ 04/04/17 08:00 Acyclovir Sodium 1000 mg/Sodium Chloride 150 ml @ 150 mls/hr Q8H IV 04/04/17 10:00 Family History Reviewed and noncontributory Social History Patient denies EtOH use tobacco use or illicit drug use Physical Exam Vital Signs Vital Signs Date Time Temp Pulse Resp B/P (MAP) Pulse Ox O2 Delivery O2 Flow Rate FiO2 04/04/17 04:22 110 16 158/73 (101) 97 04/04/17 01:03 99.8 116 16 174/78 (110) 98 04/03/17 22:34 120 18 174/77 (109) 97 04/03/17 22:17 84 18 97 Room Air 04/03/17 20:11 201/84 (123) 04/03/17 17:07 97.1 108 22 198/87 (124) 97 Physical Exam GENERAL: This is a well-nourished, well-developed patient SKIN: No rashes, ecchymoses or lesions. Cool and dry. HEAD: Atraumatic. Normocephalic. No temporal or scalp tenderness. EYES: Pupils equal round and reactive. Extraocular motions intact. No scleral icterus. No injection or drainage. ENT: Nose without bleeding, purulent drainage or septal hematoma. Throat without erythema, tonsillar hypertrophy or exudate. Uvula midline. Airway patent. NECK: Trachea midline. No JVD or lymphadenopathy. Supple, nontender, no meningeal signs. Kernig's sign negative CARDIOVASCULAR: Regular rate and rhythm RESPIRATORY: Clear to auscultation. Breath sounds equal bilaterally. GASTROINTESTINAL: Abdomen soft, non-tender, nondistended. No hepato-splenomegaly , or palpable masses. No guarding. MUSCULOSKELETAL: Extremities without clubbing, cyanosis, or edema. No joint tenderness, effusion, or edema noted. No calf tenderness. Negative Homans sign bilaterally. NEUROLOGICAL: Awake and alert. No focal deficits. Motor and sensory grossly within normal limits. Five out of 5 muscle strength in all muscle groups. Normal speech. Laboratory Laboratory Tests Test 04/03/17 21:15 04/03/17 22:00 White Blood Count 15.5 Red Blood Count 4.16 Hemoglobin 9.9 Hematocrit 31.2 Mean Corpuscular Volume 75.0 Mean Corpuscular Hemoglobin 23.7 Mean Corpuscular Hemoglobin Concent 31.6 Red Cell Distribution Width 16.1 Platelet Count 385 Mean Platelet Volume 8.6 Neutrophils (%) (Auto) 86.6 Lymphocytes (%) (Auto) 8.3 Monocytes (%) (Auto) 4.7 Eosinophils (%) (Auto) 0.1 Basophils (%) (Auto) 0.3 Neutrophils # (Auto) 13.4 Lymphocytes # (Auto) 1.3 Monocytes # (Auto) 0.7 Eosinophils # (Auto) 0.0 Basophils # (Auto) 0.0 CBC Comment DIFF FINAL Differential Comment Prothrombin Time 10.9 Prothromb Time International Ratio 1.1 Activated Partial Thromboplast Time 24.7 Blood Urea Nitrogen 17 Creatinine 0.86 Random Glucose 193 Total Protein 7.9 Albumin 3.2 Calcium Level 9.0 Alkaline Phosphatase 121 Aspartate Amino Transf (AST/SGOT) 13 Alanine Aminotransferase (ALT/SGPT) 36 Total Bilirubin 0.2 Sodium Level 139 Potassium Level 3.7 Chloride Level 107 Carbon Dioxide Level 20.3 Anion Gap 12 Estimat Glomerular Filtration Rate 85 Human Chorionic Gonadotropin, Quant 3 B-Hydroxybutyrate 0.21 Urine Color YELLOW Urine Turbidity HAZY Urine pH 6.5 Urine Specific [place] 1.026 Urine Protein 30 Urine Glucose (UA) NEG Urine Ketones 10 Urine Occult Blood NEG Urine Nitrite NEG Urine Bilirubin NEG Urine Urobilinogen LESS THAN 2.0 Urine Leukocyte Esterase NEG Urine RBC 2 Urine WBC 2 Urine Squamous Epithelial Cells 1 Urine Mucus FEW Microscopic Urinalysis Comment CULT NOT INDICATED Date/Time Source Procedure Growth Status 04/03/17 21:15 Nasal Washing Influenza Types A,B Antigen (SUZANNE) - Final NEGATIVE FOR FLU A AND B ANTIGEN.... Complete Result Diagram: 04/03/17211404/03/172114 Imaging Last Impressions Head CT 04/03/17 0000 Signed Impressions: Service Date/Time: Monday, April 03, 2017 22:02 - CONCLUSION: 1. No acute findings in the brain. 2. Left sphenoid sinus disease. MD Ramon Madera VTE Risk Assessment Caprini VTE Risk Assessment: No/Low Risk (score <= 1) Caprini Risk Assessment Model Point Value = 1 Point Value = 2 Point Value = 3 Point Value = 5 Age 41-60 Minor surgery BMI > 25 kg/m2 Swollen legs Varicose veins or History of unexplained or recurrent spontaneous Oral contraceptives or hormone replacement Sepsis (< 1 month) Serious lung disease, including pneumonia (< 1 month) Abnormal pulmonary function Acute myocardial infarction Congestive heart failure (< 1 month) History of inflammatory bowel disease Medical patient at bed rest Age 61-74 Arthroscopic surgery Major open surgery (> 45 min) Laparoscopic surgery (> 45 min) Malignancy Confined to bed (> 72 hours) Immobilizing plaster cast Central venous access Age >= 75 History of VTE Family history of VTE Factor V Leiden Prothrombin [id number] Lupus anticoagulant Anticardiolipin antibodies Elevated serum homocysteine Heparin-induced thrombocytopenia Other congenital or acquired thrombophilia Stroke (< 1 month) Elective arthroplasty Hip, pelvis, or leg fracture Acute spinal cord injury (< 1 month) Prophylaxis Regimen Total Risk Factor Score Risk Level Prophylaxis Regimen 0-1 Low Early ambulation 2 Moderate Order ONE of the following: *Sequential Compression Device (SCD) *Heparin 5000 units SQ BID 3-4 Higher Order ONE of the following medications: *Heparin 5000 units SQ TID *Enoxaparin/Lovenox 40 mg SQ daily (WT < 150 kg, CrCl > 30 mL/min) *Enoxaparin/Lovenox 30 mg SQ daily (WT < 150 kg, CrCl > 10-29 mL/min) *Enoxaparin/Lovenox 30 mg SQ BID (WT < 150 kg, CrCl > 30 mL/min) AND/OR *Sequential Compression Device (SCD) 5 or more Highest Order ONE of the following medications: *Heparin 5000 units SQ TID (Preferred with Epidurals) *Enoxaparin/Lovenox 40 mg SQ daily (WT < 150 kg, CrCl > 30 mL/min) *Enoxaparin/Lovenox 30 mg SQ daily (WT < 150 kg, CrCl > 10-29 mL/min) *Enoxaparin/Lovenox 30 mg SQ BID (WT < 150 kg, CrCl > 30 mL/min) AND *Sequential Compression Device (SCD) Assessment and Plan Problem List: (1) Intractable headache ICD Codes: R51 - Headache Status: Acute Plan: 51-year-old female presents with intractable headache and neck stiffness after recent viral syndrome Lumbar puncture attempted but unsuccessful in emergency Department Patient started on empiric treatment or meningitis IV Rocephin IV vancomycin and acyclovir Consult ID Interventional radiology consulted for lumbar puncture DVT prophylaxis with SCDs (2) Neck stiffness ICD Codes: M43.6 - Torticollis Status: Acute Plan: See above (3) Diabetes mellitus ICD Codes: E11.9 - Type 2 diabetes mellitus without complications Status: Chronic Plan: Provide diabetic diet Sliding scale insulin coverage Continue metformin Assessment and Plan Patient examined. Assessment and plan formulated with Kary Herbert PA-C. I agree with the above. 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
[2017-04-04] MEDS: INSULIN ASPART SUPPLEMENTAL SCALE SQ SCH ×4 (09:08→21:22)
[2017-04-04] MEDS: ACYCLOVIR INJ 1,000 MG in SODIUM CHLORIDE 0.9% INJ 150 ML IV SCH ×2 (10:56→21:07)
[2017-04-04 11:17] LABS: AUTOMATED NEUTROPHIL # 10.1 TH/MM3 (1.8-7.7); BASOPHIL # 0.1 TH/MM3 (0-0.2); BASOPHIL % 0.5 % (0.0-2.0); HEMATOCRIT 29.5 % (35.0-46.0); HEMOGLOBIN 9.9 GM/DL (11.6-15.3); LYMPH % 15.9 % (9.0-44.0); LYMPHOCYTE # 2.1 TH/MM3 (1.0-4.8); MEAN CELL VOLUME 74.2 FL (80.0-100.0); MEAN CORPUSCULAR HGB CONC 33.7 % (32.0-36.0); MEAN PLATELET VOLUME 8.8 FL (7.0-11.0); MONO % 7.2 % (0.0-8.0); NEUT % 76.4 % (16.0-70.0); PLATELET COUNT 393 TH/MM3 (150-450); RED BLOOD COUNT 3.97 MIL/MM3 (4.00-5.30); RED CELL DISTRIBUTION WIDTH 16.2 % (11.6-17.2); WHITE BLOOD COUNT 13.2 TH/MM3 (4.0-11.0)
[2017-04-04] MEDS: ACETAMINOPHEN/HYDROcodone 325 MG/5 MG TAB PO PRN ×2 (12:10→19:21)
[2017-04-04] MEDS: ONDANSETRON HCL 4 MG/2 ML VIAL IV PUSH PRN (13:06)
--- NOTE | 2017-04-04 14:09 | PD.RAD ---
Post Procedure Progress Note Pre Procedure Diagnosis: (1) Neck stiffness (2) Intractable headache Post Procedure Diagnosis: (1) Neck stiffness (2) Intractable headache Procedure Date: Apr 04, 2017 Supervising Radiologist: Sj Lino Proceduralist/Assist: Clay Vo, RT(R), Gema Winn RT(R) Anesthesia: Local Plan of Activity Patient to Unit: Other (ED) Patient Condition: Good See PACS Report for procedural detail/treatment Spinal Procedure Lumbar Puncture L2-L3 Fluid Description: Cloudy, Other (pink) Puncture Time: 13:50 Sj Lino MD Apr 04, 2017 14:09
[2017-04-04 15:06] LABS: TOTAL PROTEIN,CSF 201.2 MG/DL (15.0-45.0)
[2017-04-04 15:23] LABS: CSF LYMPHOCYTES 8 %; CSF MONOCYTES 18 %; CSF NEUTROPHILS 74 %
[2017-04-04 15:29] LABS: RBC TUBE #1 5271 /MM3; WBC TUBE #1 571 /MM3 (0-10)
[2017-04-04 15:34] LABS: CSF LYMPHOCYTES 4 %; CSF MONOCYTES 14 %; CSF NEUTROPHILS 82 %
[2017-04-04 15:35] LABS: RBC TUBE #4 12901 /MM3; WBC TUBE #4 3713 /MM3 (0-10)
[2017-04-04 15:46] LABS: SUPERNATE COLOR TUBE #1 CLEAR (CLEAR)
--- NOTE | 2017-04-04 16:12 | PD.ID.CON ---
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 No animal contact She apparently has low grade fever as well She denies any other symptoms She is ambulating, I saw her walked to bathroom w/o any assistance down the dunaway way Pt was started on abx last night Blood clx not done yet SHe apparently had unsuccesuful bed side LP attempt last night anad was started on empiric abx P IR LP She initially refused procedure, but later concented to it After my visit pt underwent LP and her findings showed 3700+ WBC with neutrophil predominant 500+ RBC, no org's on Gstain Review of Systems Constitutional: COMPLAINS OF: Fever Eyes: COMPLAINS OF: Photosensitivity Neurologic: COMPLAINS OF: Headache Except as stated in HPI: all other systems reviewed are Neg Past Family Social History Allergies: Coded Allergies: No Known Allergies (Verified Adverse Reaction, Unknown, 04/03/17) Past Medical History diabetes mellitus on insulin and pills, GERD, obesity and anemia Past Surgical History remote hysterectomy Active Ordered Medications Medications where reviewed in EMR Antibiotics Include: acyclovir CFTX vancomycin Family History reviewed noncontributory Social History No Tobacco. No ETOH. No Illicit Drugs. Physical Exam Vital Signs Vital Signs Date Time Temp Pulse Resp B/P (MAP) Pulse Ox O2 Delivery O2 Flow Rate FiO2 04/04/17 13:10 12 04/04/17 12:00 99.7 115 18 147/87 (107) 100 04/04/17 04:22 110 16 158/73 (101) 97 04/04/17 01:03 99.8 116 16 174/78 (110) 98 04/03/17 22:34 120 18 174/77 (109) 97 04/03/17 22:17 84 18 97 Room Air 04/03/17 20:11 201/84 (123) 04/03/17 17:07 97.1 108 22 198/87 (124) 97 Physical Exam CONSTITUTIONAL/GENERAL: This is an obese female patient, in no apparent distress. TUBES/LINES/DRAINS: SKIN: No jaundice, rashes, or lesions. Ecchymoses on upper extremities. No wounds seen anteriorly. Skin temperature appropriate. Not diaphoretic. HEAD: Atraumatic. Normocephalic. EYES: Pupils equal and round and reactive. Extraocular motions intact. No scleral icterus. No injection or drainage. Fundi not examined. ENT: Hearing grossly normal. Nose without bleeding or purulent drainage. Throat without visible erythema, exudates, masses, or lesions. NECK: Trachea midline. Stiff neck No palpable thyroid enlargement or nodularity. CARDIOVASCULAR: Regular rate and rhythm without murmurs, gallops, or rubs. No JVD. Peripheral pulses symmetric. RESPIRATORY/CHEST: Symmetric, unlabored respirations. Clear to auscultation. Breath sounds equal bilaterally. No wheezes, rales, or rhonchi. GASTROINTESTINAL: Abdomen soft, non-tender, nondistended. No hepato-splenomegaly , or palpable masses. No guarding. Bowel sounds present. GENITOURINARY: Without palpable bladder distension. MUSCULOSKELETAL: Extremities without clubbing, cyanosis, or edema. No joint tenderness or effusion noted. No calf tenderness. No mottling or clubbing. LYMPHATICS: No palpable cervical or supraclavicular adenopathy. NEUROLOGICAL: Awake and alert. Motor and sensory grossly within normal limits. Follows commands. Clear speech. Moves all extremities. normal gait PSYCHIATRIC: No obvious anxiety/depression. no apparent hallucinations or other psychotic thought process. Laboratory Laboratory Tests Test 04/03/17 21:15 04/03/17 22:00 04/04/17 10:41 04/04/17 13:52 White Blood Count 15.5 13.2 Red Blood Count 4.16 3.97 Hemoglobin 9.9 9.9 Hematocrit 31.2 29.5 Mean Corpuscular Volume 75.0 74.2 Mean Corpuscular Hemoglobin 23.7 25.0 Mean Corpuscular Hemoglobin Concent 31.6 33.7 Red Cell Distribution Width 16.1 16.2 Platelet Count 385 393 Mean Platelet Volume 8.6 8.8 Neutrophils (%) (Auto) 86.6 76.4 Lymphocytes (%) (Auto) 8.3 15.9 Monocytes (%) (Auto) 4.7 7.2 Eosinophils (%) (Auto) 0.1 0.0 Basophils (%) (Auto) 0.3 0.5 Neutrophils # (Auto) 13.4 10.1 Lymphocytes # (Auto) 1.3 2.1 Monocytes # (Auto) 0.7 1.0 Eosinophils # (Auto) 0.0 0.0 Basophils # (Auto) 0.0 0.1 CBC Comment DIFF FINAL DIFF FINAL Differential Comment Prothrombin Time 10.9 Prothromb Time International Ratio 1.1 Activated Partial Thromboplast Time 24.7 Blood Urea Nitrogen 17 Creatinine 0.86 Random Glucose 193 Total Protein 7.9 Albumin 3.2 Calcium Level 9.0 Alkaline Phosphatase 121 Aspartate Amino Transf (AST/SGOT) 13 Alanine Aminotransferase (ALT/SGPT) 36 Total Bilirubin 0.2 Sodium Level 139 Potassium Level 3.7 Chloride Level 107 Carbon Dioxide Level 20.3 Anion Gap 12 Estimat Glomerular Filtration Rate 85 Human Chorionic Gonadotropin, Quant 3 B-Hydroxybutyrate 0.21 Urine Color YELLOW Urine Turbidity HAZY Urine pH 6.5 Urine Specific Eloy 1.026 Urine Protein 30 Urine Glucose (UA) NEG Urine Ketones 10 Urine Occult Blood NEG Urine Nitrite NEG Urine Bilirubin NEG Urine Urobilinogen LESS THAN 2.0 Urine Leukocyte Esterase NEG Urine RBC 2 Urine WBC 2 Urine Squamous Epithelial Cells 1 Urine Mucus FEW Microscopic Urinalysis Comment CULT NOT INDICATED CSF Volume (Tube 1) 4.0 CSF WBC (Tube 1) 571 CSF RBC (Tube 1) 5271 CSF Volume (Tube 2) 3.0 CSF Supernatant Color (tube 2) CLEAR CSF Gross Blood (Tube 2) 1+ CSF Volume (Tube 3) 2.5 CSF Volume (Tube 4) 5.0 CSF Neutrophils 74 CSF Lymphocytes 8 CSF Monocytes 18 CSF Lactate Dehydrogenase 42 CSF Lactic Acid 6.2 CSF Total Protein 201.2 Test 04/04/17 14:34 CSF WBC (Tube 4) 3713 CSF RBC (Tube 4) 72347 CSF Neutrophils 82 CSF Lymphocytes 4 CSF Monocytes 14 Date/Time Source Procedure Growth Status 04/04/17 13:52 Cerebral Spinal Fluid Lumbar Puncture Fungal Smear - Final NO FUNGAL ELEMENTS SEEN. Resulted 04/04/17 13:52 Cerebral Spinal Fluid Lumbar Puncture Fungal Culture Pending Resulted 04/03/17 21:15 Nasal Washing Influenza Types A,B Antigen (SUZANNE) - Final NEGATIVE FOR FLU A AND B ANTIGEN.... Complete Result Diagram: 04/04/17 1041 04/03/17 2115 Imaging Last Impressions Head CT 04/03/17 0000 Signed Impressions: Service Date/Time: Monday, April 03, 2017 22:02 - CONCLUSION: 1. No acute findings in the brain. 2. Left sphenoid sinus disease. Brandon Pope MD Assessment and Plan Assessment and Plan Bacterial meningitis + abx use prior to LP Cont current abx will get STAT blood clx will cont current abx dw Dr Ang leiab Davida Harman MD Apr 04, 2017 16:12
[2017-04-04] MEDS: VANCOMYCIN INJ 1,750 MG in SODIUM CHLORID 0.9% 500 ML INJ 500 ML IV SCH (18:14)
[2017-04-04] MEDS ORDERED: cloNIDine HCL 0.2 MG TAB PO PRN (19:00)
[2017-04-04] MEDS ORDERED: ENALAPRILAT 1.25 MG/ML VIAL IV PRN (19:00)
[2017-04-04] MEDS: NIFEdipine 60 MG SUSTAINED RELEASE TAB PO SCH (19:21)
[2017-04-05] MEDS ORDERED: cefTRIAXone INJ 2,000 MG in SODIUM CHLORIDE 0.9% INJ 100 ML IV SCH (01:00)
[2017-04-05] MEDS: cefTRIAXone INJ 2,000 MG in SODIUM CHLORIDE 0.9% INJ 100 ML IV SCH ×2 (01:30→14:29)
[2017-04-05] MEDS: KETOROLAC TROMETHAMINE 30 MG/ML (IVP) VIAL IV PUSH PRN ×2 (01:36→08:38)
[2017-04-05] MEDS: ACYCLOVIR INJ 1,000 MG in SODIUM CHLORIDE 0.9% INJ 150 ML IV SCH ×3 (02:03→17:56)
[2017-04-05 03:23] VITALS: BP 119/58; PULSE 124; RESP 17; TEMP 98.7; O2SAT 95
[2017-04-05] MEDS: VANCOMYCIN INJ 1,750 MG in SODIUM CHLORID 0.9% 500 ML INJ 500 ML IV SCH ×3 (05:40→20:05)
[2017-04-05 07:43] VITALS: BP 136/63; PULSE 122; RESP 20; TEMP 98.3; O2SAT 97
[2017-04-05] MEDS: NIFEdipine 60 MG SUSTAINED RELEASE TAB PO SCH (08:38)
[2017-04-05] MEDS: INSULIN ASPART SUPPLEMENTAL SCALE SQ SCH ×4 (08:39→21:13)
[2017-04-05] MEDS: INSULIN DETEMIR 100 UNITS/ML VIAL SQ SCH ×2 (09:42→21:12)
--- NOTE | 2017-04-05 09:53 | RADRPT ---
EXAM DATE/TIME: 04/04/2017 13:25 [facility] COMPARISON: No previous studies available for comparison. INDICATIONS : Patient presents with headache in need of lumbar puncture for evaluation. MEDICAL HISTORY : Diabetes mellitus on insulin and pills GERD Obesity and anemia SURGICAL HISTORY : Hysterectomy Oral surgery with tooth extraction ENCOUNTER: Initial ACUITY: 1 day PAIN SCORE: 9/10 LOCATION: Head LUMBAR PUNCTURE TIME: 1350 hours FLUORO TIME: 1.6 minutes IMAGE SERIES: ACCESS LEVEL: L2-3 FLUID: 15 cc of cloudy, pink CSF was collected and sent to the laboratory for analysis. PROCEDURE : 1. Fluoroscopic guided lumbar puncture. The risks, benefits and alternatives to the procedure were explained and verbal and written consent w as obtained. The site was prepped in sterile fashion. Full sterile technique was used, including ca p, mask, sterile gloves and gown and a large sterile sheet. Hand hygiene and 2% chlorhexidine and/or betadine/alcohol prep was utilized per protocol for cutaneous antisepsis. The skin and subcutaneous tissues were infiltrated with local anesthetic solution. With fluoroscopic guidance the lumbar thecal sac was punctured at the level above. The fluid describ ed above was removed without difficulty. The patient tolerated the procedure well and there were no complications. CONCLUSION: Uncomplicated fluoroscopically guided lumbar puncture. Sj Lino MD on April 05, 2017 at 9:48 Board Certified Radiologist. This report was verified electronically.
[2017-04-05] MEDS ORDERED: INFLUENZA VIRUS VACCINE (QUADRIVALENT) 0.5 ML SYR IM ONE (10:00)
[2017-04-05 11:33] VITALS: BP 127/58; PULSE 121; RESP 20; TEMP 98.4; O2SAT 96
[2017-04-05] MEDS: 1/2 NS + KCL 20 MEQ INJ 1,000 ML IV SCH ×2 (12:04→21:00)
[2017-04-05 15:10] VITALS: BP_SYST 64; PULSE 120; RESP 18; TEMP 98.2; O2SAT 99
--- NOTE | 2017-04-05 15:59 | HHI.PR ---
Subjective Remarks Pt c/o paroxysmal coughing spells - none during my examination. Per nursing pt is exhibiting some SOB after waking to the bathroom. Objective Vitals Vital Signs Date Time Temp Pulse Resp B/P (MAP) Pulse Ox O2 Delivery O2 Flow Rate FiO2 04/05/17 11:33 98.4 121 20 127/58 (81) 96 04/05/17 07:43 98.3 122 20 136/63 (87) 97 04/05/17 03:23 98.7 124 17 119/58 (78) 95 04/04/17 23:17 98.2 119 18 131/64 (86) 95 04/04/17 20:08 97.6 113 16 139/63 (88) 97 04/04/17 16:57 98.8 117 24 187/91 (123) 100 04/04/17 16:08 99.9 113 18 152/80 (104) 98 04/05/17 04/05/17 04/06/17 15:00 23:00 07:00 # Voids 6 Result Diagram: 04/04/17 1041 04/03/17 2115 Imaging Last Impressions Lumbar Puncture Fluoroscopy 04/04/17 0808 Signed Impressions: Service Date/Time: March 13:25 - CONCLUSION: Uncomplicated fluoroscopically guided lumbar puncture. Sj Lino MD Head CT 04/03/17 0000 Signed Impressions: Service Date/Time: Monday, April 03, 2017 22:02 - CONCLUSION: 1. No acute findings in the brain. 2. Left sphenoid sinus disease. Brandon Pope MD Objective Remarks GENERAL: This is a well-nourished, well-developed patient, in no apparent distress. CARDIOVASCULAR: tachycardic RESPIRATORY: crackles at right lung base GASTROINTESTINAL: Abdomen soft, non-tender, nondistended. Normal active bowel sounds MUSCULOSKELETAL: Extremities without clubbing, cyanosis, or edema. NEURO: Alert & Oriented x4 to person, place, time, situation. Moves all ext x4 A/P Problem List: (1) Meningitis ICD Codes: G03.9 - Meningitis, unspecified Status: Acute Plan: - comgmt with ID - 51-year-old female presented to [facility] with c/o intractable headache and neck stiffness after recent viral syndrome - unsu - Pt empirically started on IV Rocephin, Vancomycin, and acyclovir following unsuccessful ER LP - Pt underwent Lumbar puncture with IR (04/04/17) - CSF WBC 3,713 - CSF Neutrophils 82 - CSF lactic acid 6.2 - CSF protein 201 - CSF titers --> pending - CSF fungal --> NO fundal elements - CSF Cx --> NO growth in 24 hours - CSF Mycobacterium --> pending - CSF Acid Fast stain --> NO bacilli - CSF gdram stain --> NO organisms; many WBCs - Blood Culture (04/04) --> NO growth to date - Case d/w Dr. Harman (04/04) - follow culture results. - DVT prophylaxis with SCDs (2) Intractable headache ICD Codes: R51 - Headache Status: Acute Plan: - see above (3) Neck stiffness ICD Codes: M43.6 - Torticollis Status: Acute Plan: - See above (4) Diabetes mellitus ICD Codes: E11.9 - Type 2 diabetes mellitus without complications Status: Chronic Plan: - metformin on hold - levemir 5 units BID - SSI (5) HTN (hypertension) ICD Codes: I10 - Essential (primary) hypertension Status: Chronic Plan: - improved - procardia XL - prn vasotec/ prn catapress (6) Cough ICD Codes: R05 - Cough Plan: - duonebs prn - O2 prn - obtain repeat CXR - tessalon prn Problem Qualifiers (1) Intractable headache: Qualified Codes: R51 - Headache (2) Diabetes mellitus: Qualified Codes: E11.8 - Type 2 diabetes mellitus with unspecified complications; Z79.4 - half-way (current) use of insulin (3) HTN (hypertension): Qualified Codes: I10 - Essential (primary) hypertension Fabián Fry DO Apr 05, 2017 15:59
--- NOTE | 2017-04-05 16:30 | HHI.IDPN ---
Subjective Subjective Remarks feels somewhat better fever resolved NGTD on all cultures Antibiotics acyclovir vancomycin CFTX Past Medical History DM Allergies: Coded Allergies: No Known Allergies (Verified Adverse Reaction, Unknown, 04/03/17) Objective . Vital Signs Date Time Temp Pulse Resp B/P (MAP) Pulse Ox O2 Delivery O2 Flow Rate FiO2 04/05/17 11:33 98.4 121 20 127/58 (81) 96 04/05/17 07:43 98.3 122 20 136/63 (87) 97 04/05/17 03:23 98.7 124 17 119/58 (78) 95 04/04/17 23:17 98.2 119 18 131/64 (86) 95 04/04/17 20:08 97.6 113 16 139/63 (88) 97 04/04/17 16:57 98.8 117 24 187/91 (123) 100 04/05/17 04/05/17 04/06/17 15:00 23:00 07:00 # Voids 6 . Laboratory Tests Test 04/03/17 21:15 04/04/17 10:41 White Blood Count 15.5 TH/MM3 13.2 TH/MM3 Red Blood Count 4.16 MIL/MM3 3.97 MIL/MM3 Hemoglobin 9.9 GM/DL 9.9 GM/DL Hematocrit 31.2 % 29.5 % Mean Corpuscular Volume 75.0 FL 74.2 FL Mean Corpuscular Hemoglobin 23.7 PG 25.0 PG Mean Corpuscular Hemoglobin Concent 31.6 % 33.7 % Red Cell Distribution Width 16.1 % 16.2 % Platelet Count 385 TH/MM3 393 TH/MM3 Mean Platelet Volume 8.6 FL 8.8 FL Neutrophils (%) (Auto) 86.6 % 76.4 % Lymphocytes (%) (Auto) 8.3 % 15.9 % Monocytes (%) (Auto) 4.7 % 7.2 % Eosinophils (%) (Auto) 0.1 % 0.0 % Basophils (%) (Auto) 0.3 % 0.5 % Neutrophils # (Auto) 13.4 TH/MM3 10.1 TH/MM3 Lymphocytes # (Auto) 1.3 TH/MM3 2.1 TH/MM3 Monocytes # (Auto) 0.7 TH/MM3 1.0 TH/MM3 Eosinophils # (Auto) 0.0 TH/MM3 0.0 TH/MM3 Basophils # (Auto) 0.0 TH/MM3 0.1 TH/MM3 CBC Comment DIFF FINAL DIFF FINAL Differential Comment Laboratory Tests Test 04/03/17 21:15 Blood Urea Nitrogen 17 MG/DL Creatinine 0.86 MG/DL Random Glucose 193 MG/DL Total Protein 7.9 GM/DL Albumin 3.2 GM/DL Calcium Level 9.0 MG/DL Alkaline Phosphatase 121 U/L Aspartate Amino Transf (AST/SGOT) 13 U/L Alanine Aminotransferase (ALT/SGPT) 36 U/L Total Bilirubin 0.2 MG/DL Sodium Level 139 MEQ/L Potassium Level 3.7 MEQ/L Chloride Level 107 MEQ/L Carbon Dioxide Level 20.3 MEQ/L Anion Gap 12 MEQ/L Estimat Glomerular Filtration Rate 85 ML/MIN Human Chorionic Gonadotropin, Quant 3 MIU/ML Microbiology Date/Time Source Procedure Growth Status 04/04/17 16:24 Blood Peripheral Aerobic Blood Culture - Preliminary NO GROWTH IN 1 DAY Resulted 04/04/17 16:24 Blood Peripheral Anaerobic Blood Culture - Preliminary NO GROWTH IN 1 DAY Resulted 04/04/17 16:24 Blood Peripheral Aerobic Blood Culture - Preliminary NO GROWTH IN 1 DAY Resulted 04/04/17 16:24 Blood Peripheral Anaerobic Blood Culture - Preliminary NO GROWTH IN 1 DAY Resulted 04/04/17 13:52 Cerebral Spinal Fluid Lumbar Puncture Fungal Smear - Final NO FUNGAL ELEMENTS SEEN. Resulted 04/04/17 13:52 Cerebral Spinal Fluid Lumbar Puncture Fungal Culture Pending Resulted 04/04/17 13:52 Cerebral Spinal Fluid Lumbar Puncture Acid Fast Stain - Final NO ACID FAST BACILLI SEEN Resulted 04/04/17 13:52 Cerebral Spinal Fluid Lumbar Puncture Mycobacterial Culture Pending Resulted 04/04/17 13:52 Cerebral Spinal Fluid Lumbar Puncture Gram Stain - Final Resulted 04/04/17 13:52 Cerebral Spinal Fluid Lumbar Puncture CSF Culture - Preliminary NO GROWTH IN 24 HOURS. Resulted 04/03/17 21:15 Nasal Washing Influenza Types A,B Antigen (SUZANNE) - Final NEGATIVE FOR FLU A AND B ANTIGEN.... Complete Imaging Last Impressions Lumbar Puncture Fluoroscopy 04/04/17 0808 Signed Impressions: Service Date/Time: March 13:25 - CONCLUSION: Uncomplicated fluoroscopically guided lumbar puncture. Sj Lino MD Head CT 04/03/17 0000 Signed Impressions: Service Date/Time: Monday, April 03, 2017 22:02 - CONCLUSION: 1. No acute findings in the brain. 2. Left sphenoid sinus disease. Brandon Pope MD Physical Exam CONSTITUTIONAL/GENERAL: This is an obese female patient, in no apparent distress. TUBES/LINES/DRAINS: SKIN: No jaundice, rashes, or lesions. Ecchymoses on upper extremities. No wounds seen anteriorly. Skin temperature appropriate. Not diaphoretic. HEAD: Atraumatic. Normocephalic. EYES: Pupils equal and round and reactive. Extraocular motions intact. No scleral icterus. No injection or drainage. Fundi not examined. ENT: Hearing grossly normal. Nose without bleeding or purulent drainage. Throat without visible erythema, exudates, masses, or lesions. NECK: Trachea midline. neck remains stiff No palpable thyroid enlargement or nodularity. CARDIOVASCULAR: Regular rate and rhythm without murmurs, gallops, or rubs. No JVD. Peripheral pulses symmetric. RESPIRATORY/CHEST: Symmetric, unlabored respirations. Clear to auscultation. Breath sounds equal bilaterally. No wheezes, rales, or rhonchi. GASTROINTESTINAL: Abdomen soft, non-tender, nondistended. MUSCULOSKELETAL: Extremities without clubbing, cyanosis, or edema. No joint tenderness or effusion noted. No calf tenderness. No mottling or clubbing. NEUROLOGICAL: Awake and alert. Intact PSYCHIATRIC: No obvious anxiety/depression. no apparent hallucinations or other psychotic thought process. Assessment & Plan Remarks Bacterial meningitis + abx use prior to LP Cont current abx awaiting antigen testing Davida Harman MD Apr 05, 2017 16:30
[2017-04-05] MEDS ORDERED: PHARMACY ORDERED LAB ONE (17:45)
[2017-04-05 18:11] LABS: AUTOMATED NEUTROPHIL # 11.2 TH/MM3 (1.8-7.7); BASOPHIL % 0.3 % (0.0-2.0); EOSINOPHIL # 0.1 TH/MM3 (0-0.4); EOSINOPHIL % 0.6 % (0.0-4.0); HEMOGLOBIN 10.1 GM/DL (11.6-15.3); LYMPH % 13.5 % (9.0-44.0); LYMPHOCYTE # 1.9 TH/MM3 (1.0-4.8); MEAN CELL VOLUME 74.5 FL (80.0-100.0); MEAN CORPUSCULAR HEMOGLOBIN 24.9 PG (27.0-34.0); MEAN CORPUSCULAR HGB CONC 33.5 % (32.0-36.0); MEAN PLATELET VOLUME 8.6 FL (7.0-11.0); MONOCYTE # 0.8 TH/MM3 (0-0.9); NEUT % 79.6 % (16.0-70.0); PLATELET COUNT 377 TH/MM3 (150-450); RED BLOOD COUNT 4.03 MIL/MM3 (4.00-5.30); RED CELL DISTRIBUTION WIDTH 16.1 % (11.6-17.2); WHITE BLOOD COUNT 14.1 TH/MM3 (4.0-11.0)
[2017-04-05] MEDS ORDERED: RESP: ALBUTEROL 2.5 MG/IPRATROPIUM 0.5 MG NEB (PRN) NEB (18:30)
[2017-04-05 18:31] VITALS: PULSE 123; O2SAT 96
[2017-04-05 18:35] LABS: BICARBONATE 23.2 MEQ/L (21.0-32.0); CALCIUM 8.8 MG/DL (8.5-10.1); CREATININE 0.76 MG/DL (0.50-1.00)
[2017-04-05 20:00] VITALS: BP 131/69; PULSE 130; RESP 18; TEMP 99.7; O2SAT 98
[2017-04-05] MEDS: ACETAMINOPHEN/HYDROcodone 325 MG/5 MG TAB PO PRN (21:22)
[2017-04-06] VITALS: BP 135/86; PULSE 131; RESP 22; TEMP 98.9; O2SAT 99
[2017-04-06] MEDS: BENZONATATE 100 MG CAP PO PRN ×3 (00:54→20:44)
[2017-04-06] MEDS: cefTRIAXone INJ 2,000 MG in SODIUM CHLORIDE 0.9% INJ 100 ML IV SCH ×2 (01:08→12:58)
[2017-04-06] MEDS: ACYCLOVIR INJ 1,000 MG in SODIUM CHLORIDE 0.9% INJ 150 ML IV SCH (01:40)
[2017-04-06 04:00] VITALS: BP 134/68; PULSE 124; RESP 18; TEMP 98.8; O2SAT 97
[2017-04-06 05:19] LABS: BASOPHIL % 0.3 % (0.0-2.0); EOSINOPHIL # 0.1 TH/MM3 (0-0.4); EOSINOPHIL % 0.7 % (0.0-4.0); HEMATOCRIT 32.6 % (35.0-46.0); HEMOGLOBIN 10.4 GM/DL (11.6-15.3); LYMPH % 13.7 % (9.0-44.0); MEAN CELL VOLUME 74.9 FL (80.0-100.0); MEAN CORPUSCULAR HEMOGLOBIN 23.9 PG (27.0-34.0); MEAN CORPUSCULAR HGB CONC 31.9 % (32.0-36.0); MEAN PLATELET VOLUME 8.6 FL (7.0-11.0); MONO % 8.5 % (0.0-8.0); MONOCYTE # 1.2 TH/MM3 (0-0.9); NEUT % 76.8 % (16.0-70.0); PLATELET COUNT 399 TH/MM3 (150-450); RED BLOOD COUNT 4.36 MIL/MM3 (4.00-5.30); RED CELL DISTRIBUTION WIDTH 16.2 % (11.6-17.2); WHITE BLOOD COUNT 14.3 TH/MM3 (4.0-11.0)
[2017-04-06 05:33] LABS: BICARBONATE 21.7 MEQ/L (21.0-32.0); CALCIUM 8.9 MG/DL (8.5-10.1); CREATININE 1.49 MG/DL (0.50-1.00)
[2017-04-06] MEDS: VANCOMYCIN INJ 1,750 MG in SODIUM CHLORID 0.9% 500 ML INJ 500 ML IV SCH (05:58)
[2017-04-06] MEDS: ACETAMINOPHEN/HYDROcodone 325 MG/5 MG TAB PO PRN ×2 (06:06→13:37)
[2017-04-06 08:00] VITALS: BP 143/72; PULSE 112; RESP 17; TEMP 98.3; O2SAT 96
[2017-04-06] MEDS: 1/2 NS + KCL 20 MEQ INJ 1,000 ML IV SCH ×2 (08:48→18:04)
[2017-04-06] MEDS: NIFEdipine 60 MG SUSTAINED RELEASE TAB PO SCH (08:48)
[2017-04-06] MEDS: INSULIN DETEMIR 100 UNITS/ML VIAL SQ SCH (09:00)
[2017-04-06] MEDS: INSULIN ASPART SUPPLEMENTAL SCALE SQ SCH ×4 (09:02→20:45)
--- NOTE | 2017-04-06 09:12 | HHI.PR ---
Addendum to Inpatient Note Additional Information Result Comment: PROCEDURE: BACTERIAL MENINGITIS PANEL,PCR REF SOURCE: CSF RESULT RANGE Escherichia coli K PCR CSF Negative [Negative] Haemophilus influenzae PCR CSF Negative [Negative] Listeria monocytogenes PCR CSF Negative [Negative] Neisseria meningitidis PCR CSF Negative [Negative] Strep Group B PCR CSF Negative [Negative] Streptococcus pneumoniae PCR CSF Negative [Negative] Cytomegalovirus CSF Qualitative PCR Negative [Negative] Enterovirus RNA PCR CSF Negative {Negative] Herpes Virus 6 CSF Qual PCR Negative [Negative] Herpes simplex virus 1 PCR CSF Negative [Negative] Herpes simplex virus 2 PCR CSP Negative [Negative] Human Parechovirus PCR CSF Negative [Negative} Varicella zoster PCR CSF Negative [Negative] Cryptococcus neoformans gattii PCR CSF Negative [Negative} Testing performed by: [address] acyclovir Davida Harman MD Apr 06, 2017 09:12
--- NOTE | 2017-04-06 10:38 | RADRPT ---
EXAM DATE/TIME: 04/06/2017 10:27 [facility] COMPARISON: CHEST SINGLE AP, March 25, 2017, 17:30. INDICATIONS : Cough for 2 days MEDICAL HISTORY : None. SURGICAL HISTORY : None. ENCOUNTER: Initial ACUITY: 2 days PAIN SCORE: 0/10 LOCATION: Bilateral chest FINDINGS: Minimal bibasilar parenchymal changes nonspecific. The heart and pulmonary vascularity are normal.. Degenerative changes both shoulders. CONCLUSION: Minimal nonspecific bibasilar parenchymal changes.. Jarad Powell MD FACR on April 06, 2017 at 10:34 Board Certified Radiologist. This report was verified electronically.
[2017-04-06] MEDS: SODIUM CHLORIDE 0.9% FLUSH 10 ML FLUSH IVF PRN ×3 (11:14→15:45)
[2017-04-06 12:00] VITALS: BP 127/58; PULSE 117; RESP 17; TEMP 97.2; O2SAT 100
--- NOTE | 2017-04-06 13:41 | HHI.IDPN ---
Subjective Subjective Remarks c/o headache c/o L side facial, sinus pain fever resolved NGTD on all cultures pt refuses scans (mri or ct) co cough, dry Antibiotics acyclovir vancomycin CFTX Past Medical History DM Allergies: Coded Allergies: No Known Allergies (Verified Allergy, Unknown, 04/05/17) Objective . Vital Signs Date Time Temp Pulse Resp B/P (MAP) Pulse Ox O2 Delivery O2 Flow Rate FiO2 04/06/17 08:00 98.3 112 17 143/72 (95) 96 04/06/17 04:00 98.8 124 18 134/68 (90) 97 04/06/17 00:00 98.9 131 22 135/86 (102) 99 04/05/17 20:00 99.7 130 18 131/69 (89) 98 04/05/17 18:31 123 96 04/05/17 15:10 98.2 120 18 64/ 99 . Result Comment: PROCEDURE: BACTERIAL MENINGITIS PANEL,PCR REF SOURCE: CSF RESULT RANGE Escherichia coli K PCR CSF Negative [Negative] Haemophilus influenzae PCR CSF Negative [Negative] Listeria monocytogenes PCR CSF Negative [Negative] Neisseria meningitidis PCR CSF Negative [Negative] Strep Group B PCR CSF Negative [Negative] Streptococcus pneumoniae PCR CSF Negative [Negative] Cytomegalovirus CSF Qualitative PCR Negative [Negative] Enterovirus RNA PCR CSF Negative {Negative] Herpes Virus 6 CSF Qual PCR Negative [Negative] Herpes simplex virus 1 PCR CSF Negative [Negative] Herpes simplex virus 2 PCR CSP Negative [Negative] Human Parechovirus PCR CSF Negative [Negative} Varicella zoster PCR CSF Negative [Negative] Cryptococcus neoformans gattii PCR CSF Negative [Negative} Testing performed by: [address] [id number] Laboratory Tests Test 04/05/17 17:37 04/06/17 04:34 White Blood Count 14.1 TH/MM3 14.3 TH/MM3 Red Blood Count 4.03 MIL/MM3 4.36 MIL/MM3 Hemoglobin 10.1 GM/DL 10.4 GM/DL Hematocrit 30.0 % 32.6 % Mean Corpuscular Volume 74.5 FL 74.9 FL Mean Corpuscular Hemoglobin 24.9 PG 23.9 PG Mean Corpuscular Hemoglobin Concent 33.5 % 31.9 % Red Cell Distribution Width 16.1 % 16.2 % Platelet Count 377 TH/MM3 399 TH/MM3 Mean Platelet Volume 8.6 FL 8.6 FL Neutrophils (%) (Auto) 79.6 % 76.8 % Lymphocytes (%) (Auto) 13.5 % 13.7 % Monocytes (%) (Auto) 6.0 % 8.5 % Eosinophils (%) (Auto) 0.6 % 0.7 % Basophils (%) (Auto) 0.3 % 0.3 % Neutrophils # (Auto) 11.2 TH/MM3 11.0 TH/MM3 Lymphocytes # (Auto) 1.9 TH/MM3 2.0 TH/MM3 Monocytes # (Auto) 0.8 TH/MM3 1.2 TH/MM3 Eosinophils # (Auto) 0.1 TH/MM3 0.1 TH/MM3 Basophils # (Auto) 0.0 TH/MM3 0.0 TH/MM3 CBC Comment DIFF FINAL DIFF FINAL Differential Comment Laboratory Tests Test 04/05/17 17:37 04/06/17 04:34 Blood Urea Nitrogen 8 MG/DL 13 MG/DL Creatinine 0.76 MG/DL 1.49 MG/DL Random Glucose 221 MG/DL 203 MG/DL Calcium Level 8.8 MG/DL 8.9 MG/DL Sodium Level 142 MEQ/L 142 MEQ/L Potassium Level 3.5 MEQ/L 3.5 MEQ/L Chloride Level 110 MEQ/L 112 MEQ/L Carbon Dioxide Level 23.2 MEQ/L 21.7 MEQ/L Anion Gap 9 MEQ/L 8 MEQ/L Estimat Glomerular Filtration Rate 98 ML/MIN 45 ML/MIN Microbiology Date/Time Source Procedure Growth Status 04/04/17 16:24 Blood Peripheral Aerobic Blood Culture - Preliminary NO GROWTH IN 2 DAYS Resulted 04/04/17 16:24 Blood Peripheral Anaerobic Blood Culture - Preliminary NO GROWTH IN 2 DAYS Resulted 04/04/17 16:24 Blood Peripheral Aerobic Blood Culture - Preliminary NO GROWTH IN 2 DAYS Resulted 04/04/17 16:24 Blood Peripheral Anaerobic Blood Culture - Preliminary NO GROWTH IN 2 DAYS Resulted 04/04/17 13:52 Cerebral Spinal Fluid Lumbar Puncture Fungal Smear - Final NO FUNGAL ELEMENTS SEEN. Resulted 04/04/17 13:52 Cerebral Spinal Fluid Lumbar Puncture Fungal Culture Pending Resulted 04/04/17 13:52 Cerebral Spinal Fluid Lumbar Puncture Acid Fast Stain - Final NO ACID FAST BACILLI SEEN Resulted 04/04/17 13:52 Cerebral Spinal Fluid Lumbar Puncture Mycobacterial Culture Pending Resulted 04/04/17 13:52 Cerebral Spinal Fluid Lumbar Puncture Gram Stain - Final Resulted 04/04/17 13:52 Cerebral Spinal Fluid Lumbar Puncture CSF Culture - Preliminary NO GROWTH IN 48 HOURS. Resulted 04/03/17 21:15 Nasal Washing Influenza Types A,B Antigen (SUZANNE) - Final NEGATIVE FOR FLU A AND B ANTIGEN.... Complete Imaging Last Impressions Lumbar Puncture Fluoroscopy 04/04/17 0808 Signed Impressions: Service Date/Time: March 13:25 - CONCLUSION: Uncomplicated fluoroscopically guided lumbar puncture. Sj Lino MD Head CT 04/03/17 0000 Signed Impressions: Service Date/Time: Monday, April 03, 2017 22:02 - CONCLUSION: 1. No acute findings in the brain. 2. Left sphenoid sinus disease. Brandon Pope MD Physical Exam CONSTITUTIONAL/GENERAL: This is an obese female patient, in no apparent distress. TUBES/LINES/DRAINS: SKIN: No jaundice, rashes, or lesions. Ecchymoses on upper extremities. No wounds seen anteriorly. Skin temperature appropriate. Not diaphoretic. HEAD: Atraumatic. Normocephalic. EYES: Pupils equal and round and reactive. Extraocular motions intact. No scleral icterus. No injection or drainage. Fundi not examined. ENT: Hearing grossly normal. Nose without bleeding or purulent drainage. Throat without visible erythema, exudates, masses, or lesions. NECK: Trachea midline. neck remains stiff No palpable thyroid enlargement or nodularity. CARDIOVASCULAR: Regular rate and rhythm without murmurs, gallops, or rubs. No JVD. Peripheral pulses symmetric. RESPIRATORY/CHEST: Symmetric, unlabored respirations. Clear to auscultation. Breath sounds equal bilaterally. No wheezes, rales, or rhonchi. GASTROINTESTINAL: Abdomen soft, non-tender, nondistended. MUSCULOSKELETAL: Extremities without clubbing, cyanosis, or edema. No joint tenderness or effusion noted. No calf tenderness. No mottling or clubbing. NEUROLOGICAL: Awake and alert. Intact PSYCHIATRIC: No obvious anxiety/depression. no apparent hallucinations or other psychotic thought process. 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
[2017-04-06] MEDS: ONDANSETRON HCL 4 MG/2 ML VIAL IV PUSH PRN (14:33)
[2017-04-06 14:41] LABS: ALBUMIN SERUM 3090 mg/dL (3200 - 4800); IGG CSF 26.8 mg/dL (<=8.1); IGG INDEX CSF 0.61 (<=0.85); IGG SERUM 1160 mg/dL (767 - 1590); IGG/ALBUMIN CSF 0.23 (<=0.21); IGG/ALBUMIN SERUM 0.38 (<=0.40)
--- NOTE | 2017-04-06 15:12 | HHI.PR ---
Subjective Remarks Pt c/o continued CHAVARRIA worse with movement or cough. Pt c/o n/v, improved with zofran. Objective Vitals Vital Signs Date Time Temp Pulse Resp B/P (MAP) Pulse Ox O2 Delivery O2 Flow Rate FiO2 04/06/17 12:00 97.2 117 17 127/58 (81) 100 04/06/17 08:00 98.3 112 17 143/72 (95) 96 04/06/17 04:00 98.8 124 18 134/68 (90) 97 04/06/17 00:00 98.9 131 22 135/86 (102) 99 04/05/17 20:00 99.7 130 18 131/69 (89) 98 04/05/17 18:31 123 96 04/05/17 15:10 98.2 120 18 64/ 99 Result Diagram: 04/06/17 0434 04/06/17 0434 Imaging Last Impressions Chest X-Ray 04/06/17 0800 Signed Impressions: Service Date/Time: Thursday, April 06, 2017 10:27 - CONCLUSION: Minimal nonspecific bibasilar parenchymal changes.. Jarad Powell MD FACR Lumbar Puncture Fluoroscopy 04/04/17 0808 Signed Impressions: Service Date/Time: March 13:25 - CONCLUSION: Uncomplicated fluoroscopically guided lumbar puncture. Sj Lino MD Head CT 04/03/17 0000 Signed Impressions: Service Date/Time: Monday, April 03, 2017 22:02 - CONCLUSION: 1. No acute findings in the brain. 2. Left sphenoid sinus disease. Brandon Pope MD Objective Remarks GENERAL: This is a well-nourished, well-developed patient, in no apparent distress. CARDIOVASCULAR: tachycardic RESPIRATORY: clear x b/l GASTROINTESTINAL: Abdomen soft, non-tender, nondistended. Normal active bowel sounds MUSCULOSKELETAL: Extremities without clubbing, cyanosis, or edema. NEURO: Alert & Oriented x4 to person, place, time, situation. Moves all ext x4 A/P Problem List: (1) Meningitis ICD Codes: G03.9 - Meningitis, unspecified Status: Acute Plan: - comgmt with ID - 51-year-old female presented to [place] ER with c/o intractable headache and neck stiffness after recent viral syndrome - unsu - Pt empirically started on IV Rocephin, Vancomycin, and acyclovir following unsuccessful ER LP - Pt underwent Lumbar puncture with IR (04/04/17) - CSF WBC 3,713 - CSF Neutrophils 82 - CSF lactic acid 6.2 - CSF protein 201 - CSF negative bacterial antigen testing - CSF fungal --> NO fundal elements - CSF Cx --> NO growth - CSF Mycobacterium --> pending - CSF Acid Fast stain --> NO bacilli - CSF gram stain --> NO organisms; many WBCs - Blood Culture (04/04) --> NO growth to date - Case d/w Dr. Harman (04/04) - MRI brain ordered by ID 04/06, pt refused - pneumococcal urinary antigen --> pending - antimicrobials - acyclovir (04/04 - 04/06/17) - vancomycin (04/04 - present) - Rocephin (04/04 - present) - DVT prophylaxis with SCDs (2) Intractable headache ICD Codes: R51 - Headache Status: Acute Plan: - see above (3) Neck stiffness ICD Codes: M43.6 - Torticollis Status: Acute Plan: - See above (4) Diabetes mellitus ICD Codes: E11.9 - Type 2 diabetes mellitus without complications Status: Chronic Plan: - metformin on hold - levemir 5 units BID - SSI (5) HTN (hypertension) ICD Codes: I10 - Essential (primary) hypertension Status: Chronic Plan: - improved - procardia XL - prn vasotec/ prn catapress (6) Cough ICD Codes: R05 - Cough Plan: - duonebs prn - O2 prn - CXR (04/06) --> NO acute findings - tessalon prn Problem Qualifiers (1) Intractable headache: Qualified Codes: R51 - Headache (2) Diabetes mellitus: Qualified Codes: E11.8 - Type 2 diabetes mellitus with unspecified complications; 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
[2017-04-06] MEDS ORDERED: LORazepam 2 MG/ML VIAL IV PUSH PRN ×2 (15:15)
[2017-04-06 16:00] VITALS: BP 173/80; PULSE 118; RESP 17; TEMP 98.4; O2SAT 95
[2017-04-06] MEDS ORDERED: GADODIAMIDE PF 287 MG/ML 20 ML VIAL (for RAD MRI) IVCONTRAST ONE (16:49)
--- NOTE | 2017-04-06 17:40 | RADRPT ---
EXAM DATE/TIME: 04/06/2017 16:34 [facility] COMPARISON: No previous studies available for comparison. INDICATIONS : Meningitis. CONTRAST: 20 cc Omniscan (gadodiamide) IV MEDICAL HISTORY : Diabetes mellitus type 2. SURGICAL HISTORY : Hysterectomy. ENCOUNTER: Initial ACUITY: 1 day PAIN SCORE: 5/10 LOCATION: cranial TECHNIQUE: Multiplanar, multisequence MRI of the brain was performed both prior to and following the administrat ion of paramagnetic contrast. FINDINGS: CEREBRUM: The ventricles are normal for age. No evidence of midline shift, mass lesion, hemorrhage or acute in farction. No extraaxial fluid collections are seen. The pituitary gland and suprasellar cistern are normal in configuration. WHITE MATTER: No significant signal abnormalities are seen in the white matter. POSTERIOR FOSSA: The cerebellum and brainstem are intact. The 4th ventricle is midline. The cerebellopontine angle is unremarkable. The cerebellar tonsils are normal in position. DIFFUSION IMAGING: No focal areas of restricted diffusion are seen. No evidence of acute infarction. EXTRACRANIAL: Large air-fluid level in the left sphenoid sinus. POST-CONTRAST: No abnormal areas of parenchymal or dural enhancement. No evidence of blood-brain barrier breakdown. CONCLUSION: Large left sphenoid sinus air-fluid level and may represent acute sinusitis or may be due to intubati on. Brain MRI otherwise within normal limits. Stanton Valdez MD on April 06, 2017 at 17:37 Board Certified Radiologist. This report was verified electronically.
[2017-04-06 20:25] VITALS: BP 153/71; PULSE 135; RESP 18; TEMP 99.8; O2SAT 96
[2017-04-06] MEDS ORDERED: VANCOMYCIN INJ 1,750 MG in SODIUM CHLORID 0.9% 500 ML INJ 500 ML IV SCH (23:00)
[2017-04-07] VITALS (8 sets, daily range): BP systolic 123–167; BP diastolic 69–94; PULSE 110–134; RESP 17–18; TEMP 98–100.2; O2SAT 93–98
[2017-04-07] MEDS: cefTRIAXone INJ 2,000 MG in SODIUM CHLORIDE 0.9% INJ 100 ML IV SCH ×2 (01:00→12:13)
[2017-04-07] MEDS: 1/2 NS + KCL 20 MEQ INJ 1,000 ML IV SCH ×2 (07:04→12:13)
[2017-04-07] MEDS: INSULIN ASPART SUPPLEMENTAL SCALE SQ SCH ×4 (08:00→20:27)
[2017-04-07 08:43] LABS: AUTOMATED NEUTROPHIL # 8.3 TH/MM3 (1.8-7.7); BASOPHIL % 0.2 % (0.0-2.0); EOSINOPHIL # 0.2 TH/MM3 (0-0.4); EOSINOPHIL % 1.4 % (0.0-4.0); HEMATOCRIT 33.7 % (35.0-46.0); HEMOGLOBIN 10.7 GM/DL (11.6-15.3); LYMPH % 11.2 % (9.0-44.0); LYMPHOCYTE # 1.2 TH/MM3 (1.0-4.8); MEAN CELL VOLUME 75.9 FL (80.0-100.0); MEAN CORPUSCULAR HGB CONC 31.7 % (32.0-36.0); MEAN PLATELET VOLUME 8.3 FL (7.0-11.0); MONO % 7.5 % (0.0-8.0); MONOCYTE # 0.8 TH/MM3 (0-0.9); NEUT % 79.7 % (16.0-70.0); PLATELET COUNT 381 TH/MM3 (150-450); RED BLOOD COUNT 4.45 MIL/MM3 (4.00-5.30); RED CELL DISTRIBUTION WIDTH 16.3 % (11.6-17.2); WHITE BLOOD COUNT 10.4 TH/MM3 (4.0-11.0)
[2017-04-07] MEDS: NIFEdipine 60 MG SUSTAINED RELEASE TAB PO SCH (08:47)
[2017-04-07 09:10] LABS: CALCIUM 8.4 MG/DL (8.5-10.1); CREATININE 2.96 MG/DL (0.50-1.00); MAGNESIUM 1.9 MG/DL (1.5-2.5)
[2017-04-07] MEDS: BENZONATATE 100 MG CAP PO PRN (12:14)
--- NOTE | 2017-04-07 14:16 | HHI.PR ---
Subjective Remarks CHAVARRIA improved. Pt denies n/v. Pt c/o paroxysmal coughing spells. NO coughing during my visit today. Objective Vitals Vital Signs Date Time Temp Pulse Resp B/P (MAP) Pulse Ox O2 Delivery O2 Flow Rate FiO2 04/07/17 12:00 98.7 124 17 138/74 (95) 93 04/07/17 08:00 98.3 123 17 167/94 (118) 93 04/07/17 04:26 99.8 124 18 147/86 (106) 96 04/07/17 00:08 100.2 132 18 159/77 (104) 96 04/06/17 20:25 99.8 135 18 153/71 (98) 96 04/06/17 16:00 98.4 118 17 173/80 (111) 95 Result Diagram: 04/07/17 0803 04/07/17 0803 Imaging Last Impressions Chest X-Ray 04/06/17 0800 Signed Impressions: Service Date/Time: Thursday, April 06, 2017 10:27 - CONCLUSION: Minimal nonspecific bibasilar parenchymal changes.. Jarad Powell MD FACR Brain MRI 04/06/17 0000 Signed Impressions: Service Date/Time: Thursday, April 06, 2017 16:34 - CONCLUSION: Large left sphenoid sinus air-fluid level and may represent acute sinusitis or may be due to intubation. Brain MRI otherwise within normal limits. Stanton Valdez MD Lumbar Puncture Fluoroscopy 04/04/17 0808 Signed Impressions: Service Date/Time: March 13:25 - CONCLUSION: Uncomplicated fluoroscopically guided lumbar puncture. Sj Lino MD Head CT 04/03/17 0000 Signed Impressions: Service Date/Time: Monday, April 03, 2017 22:02 - CONCLUSION: 1. No acute findings in the brain. 2. Left sphenoid sinus disease. Brandon Pope MD Objective Remarks GENERAL: This is a well-nourished, well-developed patient, in no apparent distress. CARDIOVASCULAR: tachycardic RESPIRATORY: clear x b/l GASTROINTESTINAL: Abdomen soft, non-tender, nondistended. Normal active bowel sounds MUSCULOSKELETAL: Extremities without clubbing, cyanosis, or edema. NEURO: Alert & Oriented x4 to person, place, time, situation. Moves all ext x4 A/P Problem List: (1) Meningitis ICD Codes: G03.9 - Meningitis, unspecified Status: Acute Plan: - comgmt with ID - 51-year-old female presented to [place] ER with c/o intractable headache and neck stiffness after recent viral syndrome - unsu - Pt empirically started on IV Rocephin, Vancomycin, and acyclovir following unsuccessful ER LP - Pt underwent Lumbar puncture with IR (04/04/17) - CSF WBC 3,713 - CSF Neutrophils 82 - CSF lactic acid 6.2 - CSF protein 201 - CSF negative bacterial antigen testing - CSF fungal --> NO fungal elements - CSF Cx --> NO growth - CSF Mycobacterium --> pending - CSF Acid Fast stain --> NO bacilli - CSF gram stain --> NO organisms; many WBCs - Blood Culture (04/04) --> NO growth to date - Case d/w Dr. Harman (04/06) - MRI brain (04/06) --> sinus disease - pneumococcal urinary antigen --> pending - antimicrobials - acyclovir (04/04 - 04/06/17) - vancomycin (04/04 - 04/07) - Rocephin (04/04 - present) - Vancomycin stopped d/t rising creatinine and decreasing GFR - DVT prophylaxis with SCDs (2) ARF (acute renal failure) ICD Codes: N17.9 - Acute kidney failure, unspecified Status: Acute Plan: - Nephrology consulted - suspect d/t vancomycin - vancomycin, prn toradol (last dose 04/05), prn vasotec (not given) all stopped - obtain urine eosinophils - obtain renal US - Consult Nephrology, Dr. Grace - continue IVFs - repeat BMP in AM (3) Sinus tachycardia ICD Codes: R00.0 - Tachycardia, unspecified Status: Acute Plan: - likely d/t disease process - observe on telemetry - obtain TSH, free T4 - continue IVFs - start metoprolol 12.5mg BID (4) Intractable headache ICD Codes: R51 - Headache Status: Acute Plan: - see above (5) Neck stiffness ICD Codes: M43.6 - Torticollis Status: Acute Plan: - See above (6) Diabetes mellitus ICD Codes: E11.9 - Type 2 diabetes mellitus without complications Status: Chronic Plan: - metformin on hold - levemir 5 units BID - SSI (7) HTN (hypertension) ICD Codes: I10 - Essential (primary) hypertension Status: Chronic Plan: - improved - procardia XL - prn vasotec/ prn catapress (8) Cough ICD Codes: R05 - Cough Plan: - duonebs prn - O2 prn - CXR (04/06) --> NO acute findings - Robitussin AC 10ml q6h prn Problem Qualifiers (1) ARF (acute renal failure): Qualified Codes: N17.9 - Acute kidney failure, unspecified (2) Intractable headache: Qualified Codes: R51 - Headache (3) Diabetes mellitus: Qualified Codes: E11.8 - Type 2 diabetes mellitus with unspecified complications; 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
[2017-04-07] MEDS: METOPROLOL TARTRATE 25 MG TAB PO SCH ×2 (14:32→20:27)
[2017-04-07 14:38] LABS: FREE T4 1.61 NG/DL (0.76-1.46)
--- NOTE | 2017-04-07 16:40 | MB ---
cc: FADIA HATFIELD MD DATE OF CONSULTATION: 04/07/2017. REASON FOR CONSULTATION: Elevated BUN and creatinine for evaluation. HISTORY OF PRESENT ILLNESS: This is a 51-year-old female with past medical history of diabetes mellitus, gastroesophageal reflux disease, chronic anemia who was admitted with severe head and neck pain. I was called to see the patient because of elevated BUN and creatinine. The patient has a creatinine of 0.8 to 0.7 on admission and it increased to 1.4 yesterday and now it is 2.9. The patient denies any previous history of renal disease. She was admitted here and the diagnosis was made for meningitis. She had a lumbar puncture done which shows a WBC count of more than 3000 and she has been started on antibiotics. Infectious disease has been following the patient and the patient has been getting antibiotics. She also has severe pain and also got some doses of Toradol in the beginning and she was on vancomycin and the last dose was given around midnight yesterday and now she is on ceftriaxone. The patient has some nausea and vomiting and still she is not eating very well but the nausea and vomiting has been improving and headache is also improving. She denies any abdominal pain or shortness of breath. She does not have any dysuria or hematuria. She did not notice any decrease in the urine output. PAST MEDICAL HISTORY: 1. Diabetes mellitus. 2. Chronic anemia. 3. Gastroesophageal reflux disease (GERD). PAST SURGICAL HISTORY: 1. Hysterectomy. 2. Tooth extraction. REVIEW OF SYSTEMS: The patient has generalized weakness, feeling tired, has headache off and on but it is improving. Nausea and occasional vomiting. Has shortness of breath on exertion. No chest pain. No abdominal pain. No history of diarrhea. No dysuria, hematuria, did not notice any decrease in the urine output. SOCIAL HISTORY: There is no history of smoking or alcoholism. FAMILY HISTORY: Family history noncontributory. ALLERGIES: She has no known drug allergies. MEDICATIONS CURRENTLY: 1. She is on IV fluids with potassium chloride at 100 an hour. 2. Nifedipine 60 milligrams once a day. 3. Ceftriaxone 1 gram q. 12 hours. 4. Metoprolol 12.5 milligrams q. 12 hours. 5. Insulin as per sliding scale. 6. Zofran as needed. 7. Clonidine as needed. 8. Lorazepam as needed. PHYSICAL EXAMINATION: GENERAL: On examination, the patient is awake and alert she is not in acute distress. VITAL SIGNS: Her last blood pressure is 138/74, blood pressure has been on the higher side, temperature is 98.7, T-max of 100.2, oxygen saturation 93% to 96%. HEAD, EYES, EARS, NOSE, THROAT: The pupils are mid constricted. Nonicteric sclerae. Conjunctivae are pale. NECK: The neck is supple. JVD is not elevated. LUNGS: The patient has bilateral good air entry with occasional wheezing. HEART: S1 and S2 regular rhythm. ABDOMEN: Abdomen is obese, soft and lax. There is no tenderness. EXTREMITIES: She has mild edema in the legs. INVESTIGATIONS: White blood cell count is 10.4, hemoglobin 10.7, platelet count of 381,000. Neutrophils 79.7%. Sodium is 141, potassium 3.8, chloride 110, bicarbonate 20, BUN 25, creatinine 2.9, glucose 175, calcium 8.4. T4 is 1.6. TSH is 0.75. Urinalysis showing protein of 30 with RBCs 2 and WBCs of 1. Vancomycin level was 18.2 and this was two days ago. Cerebrospinal fluid showing white blood cell count of 3713 with 12,900 RBCs. Cultures show no growth so far. IMAGING STUDIES: MRI of the brain was done which shows large left sphenoid sinus air fluid level. Chest x-ray was done which shows nonfocal bibasilar parenchymal changes. ASSESSMENT AND PLAN: 1. Acute kidney injury. 2. Meningitis. 3. Hypertension. 4. Diabetes mellitus. 5. Anemia. The patient has been non-oliguric and has minimal proteinuria. Most likely she has acute kidney injury, either from the acute tubular necrosis or from interstitial nephritis. Urine for eosinophils has been ordered and Vancomycin has been discontinued and the level has been ordered. Currently she is on ceftriaxone and is getting the IV fluids. Continue the IV hydration. Avoid any nonsteroidal antiinflammatory drugs or any contrast agents and follow the urine output and the BUN and creatinine. Thank you for the consultation, and I will follow the patient while she in the hospital. MD MARIANA Dennis/YUE /3:13 PM 4:12 PM
[2017-04-07] MEDS ORDERED: PHARMACY ORDERED LAB ONE (16:45)
[2017-04-07] MEDS: guaiFENesin/CODEINE SYRUP 200 MG/20 MG/10 ML CUP PO PRN (16:59)
--- NOTE | 2017-04-07 17:37 | RADRPT ---
EXAM DATE/TIME: 04/07/2017 16:39 [facility] COMPARISON: No previous studies available for comparison. INDICATIONS : Increased lab values. MEDICAL HISTORY : Gastroesophageal reflux disease. Diabetes. Anemia. SURGICAL HISTORY : Hysterectomy. ENCOUNTER: Initial ACUITY: 1 day PAIN SCORE: 0/10 LOCATION: Bilateral flank MEASUREMENTS: RIGHT KIDNEY: 10.1 x 4.8 x 4.9 cm LEFT KIDNEY: 10.1 x 3.7 x 5.7 cm FINDINGS: RIGHT KIDNEY: Punctate echogenic foci in the right kidney indicating possible small calculi. No evidence hydronephr osis or mass. LEFT KIDNEY: Punctate echogenic foci in the left kidney indicating possible small calculi. No evidence hydronephro sis or mass. BLADDER: Within normal limits given the degree of distension. CONCLUSION: Possible punctate nonobstructing renal calculi bilaterally. No evidence of hydronephrosis. Stanton Valdez MD on April 07, 2017 at 17:34 Board Certified Radiologist. This report was verified electronically.
[2017-04-08] VITALS (7 sets, daily range): BP systolic 129–164; BP diastolic 59–85; PULSE 99–110; RESP 18; TEMP 96.2–99.1; O2SAT 93–98
[2017-04-08] MEDS: cefTRIAXone INJ 2,000 MG in SODIUM CHLORIDE 0.9% INJ 100 ML IV SCH ×2 (00:19→13:07)
[2017-04-08] MEDS: 1/2 NS + KCL 20 MEQ INJ 1,000 ML IV SCH ×2 (00:19→07:42)
[2017-04-08] MEDS: guaiFENesin/CODEINE SYRUP 200 MG/20 MG/10 ML CUP PO PRN ×3 (04:14→17:47)
[2017-04-08 06:10] LABS: AUTOMATED NEUTROPHIL # 8.1 TH/MM3 (1.8-7.7); BASOPHIL % 0.4 % (0.0-2.0); EOSINOPHIL # 0.2 TH/MM3 (0-0.4); EOSINOPHIL % 2.2 % (0.0-4.0); HEMOGLOBIN 9.8 GM/DL (11.6-15.3); LYMPH % 12.2 % (9.0-44.0); LYMPHOCYTE # 1.3 TH/MM3 (1.0-4.8); MEAN CELL VOLUME 74.5 FL (80.0-100.0); MEAN CORPUSCULAR HEMOGLOBIN 23.5 PG (27.0-34.0); MEAN CORPUSCULAR HGB CONC 31.6 % (32.0-36.0); MEAN PLATELET VOLUME 8.1 FL (7.0-11.0); MONO % 8.5 % (0.0-8.0); MONOCYTE # 0.9 TH/MM3 (0-0.9); NEUT % 76.7 % (16.0-70.0); PLATELET COUNT 340 TH/MM3 (150-450); RED BLOOD COUNT 4.16 MIL/MM3 (4.00-5.30); RED CELL DISTRIBUTION WIDTH 16.5 % (11.6-17.2); WHITE BLOOD COUNT 10.5 TH/MM3 (4.0-11.0)
[2017-04-08 06:31] LABS: BICARBONATE 19.1 MEQ/L (21.0-32.0); CALCIUM 8.5 MG/DL (8.5-10.1); CREATININE 3.08 MG/DL (0.50-1.00); MAGNESIUM 1.9 MG/DL (1.5-2.5)
[2017-04-08] MEDS: NIFEdipine 60 MG SUSTAINED RELEASE TAB PO SCH (07:42)
[2017-04-08] MEDS: INSULIN ASPART SUPPLEMENTAL SCALE SQ SCH ×4 (07:43→19:53)
[2017-04-08] MEDS: METOPROLOL TARTRATE 25 MG TAB PO SCH ×2 (07:43→19:52)
[2017-04-08] MEDS ORDERED: LORATADINE 10 MG TAB PO ONE (10:45)
[2017-04-08] MEDS: SODIUM CHLOR 0.9% 1000 ML INJ 1,000 ML IV SCH ×2 (11:27→19:52)
--- NOTE | 2017-04-08 11:44 | HHI.NPPN ---
Subjective History of Present Illness 51-year-old female with past medical history of diabetes mellitus, gastroesophageal reflux disease, chronic anemia who was admitted with severe head and neck pain. I was called to see the patient because of elevated BUN and creatinine. The patient has a creatinine of 0.8 to 0.7 on admission and it increased. Additional Remarks Patient is alert, no SOB, headache is improving. Review of Systems General Constitutional: Fever, Fatigue Objective Data Data 04/08/17 04/09/17 19:00 07:00 # Bowel Movements 1 Vital Signs Date Time Temp Pulse Resp B/P (MAP) Pulse Ox O2 Delivery O2 Flow Rate FiO2 04/08/17 11:17 97.9 99 18 129/70 (89) 93 04/08/17 11:05 107 04/08/17 08:00 97.7 109 18 133/59 (83) 94 04/08/17 04:09 97.8 105 18 164/74 (104) 96 04/08/17 00:30 99.1 109 18 130/67 (88) 98 04/07/17 20:35 99.9 110 18 150/71 (97) 98 04/07/17 16:00 98.0 111 17 123/69 (87) 97 04/07/17 12:00 98.7 124 17 138/74 (95) 93 04/07/17 11:54 134 -: 04/08/17 0545 04/08/17 0545 Microbiology 04/07/17 Streptococcus pneumoniae Antigen (M - Final, Complete PRESUMPTIVE NEGATIVE FOR STREPTOCOCCU... 04/07/17 Streptococcus pneumoniae Antigen (M - Final, Complete PRESUMPTIVE NEGATIVE FOR STREPTOCOCCU... Physical Exam General Appearance: No Acute Distress, Comfortable Eyes Eye Exam: Pupils Equal Throat Throat Exam: Oral Mucosa [place] & Moist Neck Neck Exam: Neck Supple Pulmonary Resp Exam: Clear Bilaterally, Breath Sounds Equal, No Distress, Decreased Bases Cardiology CV Exam: Regular, Normal Sinus Rhythm Gastrointestinal/Abdomen GI Exam: Soft, Non-Tender, Bowel Sounds Present Extremeties Extremities Exam: Trace Edema Neurologic Neuro Exam: Alert, Awake, Oriented Psychiatric Psych Exam: Appropriate Responses Assessment/Plan Assessment Summary: ROZ/Acute Renal Failure Problem List: (1) Neck stiffness ICD Codes: M43.6 - Torticollis Status: Acute (2) Generalized weakness ICD Codes: R53.1 - Generalized weakness Status: Acute (3) Diabetes mellitus ICD Codes: E11.9 - Type 2 diabetes mellitus without complications Status: Chronic (4) Leukocytosis ICD Codes: D72.829 - Leukocytosis Status: Acute (5) HTN (hypertension) ICD Codes: I10 - Essential (primary) hypertension Status: Chronic (6) Meningitis ICD Codes: G03.9 - Meningitis, unspecified Status: Acute (7) ARF (acute renal failure) ICD Codes: N17.9 - Acute kidney failure, unspecified Status: Acute Plan Patient admitted with Meningitis and develop ROZ. Has no Eosinophiluria. Urine protein is minimal./ Vanco. level was elevated. Now on Ceftriaxone. Renal U/S noted. Creatinine is almost same. Non oliguric. Continue IVF, avoid Nephrotoxins. Follow the BMP. Problem Qualifiers (1) Diabetes mellitus: Qualified Codes: E11.8 - Type 2 diabetes mellitus with unspecified complications; Z79.4 - custodial (current) use of insulin (2) Leukocytosis: Qualified Codes: D72.829 - Elevated white blood cell count, unspecified (3) HTN (hypertension): Qualified Codes: I10 - Essential (primary) hypertension (4) ARF (acute renal failure): Qualified Codes: N17.9 - Acute kidney failure, unspecified Nellie Grace MD Apr 08, 2017 11:44
--- NOTE | 2017-04-08 15:05 | HHI.IDPN ---
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 Vital Signs Date Time Temp Pulse Resp B/P (MAP) Pulse Ox O2 Delivery O2 Flow Rate FiO2 04/08/17 11:17 97.9 99 18 129/70 (89) 93 04/08/17 11:05 107 04/08/17 08:00 97.7 109 18 133/59 (83) 94 04/08/17 04:09 97.8 105 18 164/74 (104) 96 04/08/17 00:30 99.1 109 18 130/67 (88) 98 04/07/17 20:35 99.9 110 18 150/71 (97) 98 04/07/17 16:00 98.0 111 17 123/69 (87) 97 04/08/17 04/08/17 04/09/17 15:00 23:00 07:00 # Bowel Movements 1 . Laboratory Tests Test 04/07/17 08:03 04/08/17 05:45 White Blood Count 10.4 TH/MM3 10.5 TH/MM3 Red Blood Count 4.45 MIL/MM3 4.16 MIL/MM3 Hemoglobin 10.7 GM/DL 9.8 GM/DL Hematocrit 33.7 % 31.0 % Mean Corpuscular Volume 75.9 FL 74.5 FL Mean Corpuscular Hemoglobin 24.0 PG 23.5 PG Mean Corpuscular Hemoglobin Concent 31.7 % 31.6 % Red Cell Distribution Width 16.3 % 16.5 % Platelet Count 381 TH/MM3 340 TH/MM3 Mean Platelet Volume 8.3 FL 8.1 FL Neutrophils (%) (Auto) 79.7 % 76.7 % Lymphocytes (%) (Auto) 11.2 % 12.2 % Monocytes (%) (Auto) 7.5 % 8.5 % Eosinophils (%) (Auto) 1.4 % 2.2 % Basophils (%) (Auto) 0.2 % 0.4 % Neutrophils # (Auto) 8.3 TH/MM3 8.1 TH/MM3 Lymphocytes # (Auto) 1.2 TH/MM3 1.3 TH/MM3 Monocytes # (Auto) 0.8 TH/MM3 0.9 TH/MM3 Eosinophils # (Auto) 0.2 TH/MM3 0.2 TH/MM3 Basophils # (Auto) 0.0 TH/MM3 0.0 TH/MM3 CBC Comment DIFF FINAL DIFF FINAL Differential Comment Laboratory Tests Test 04/07/17 08:03 04/08/17 05:45 Blood Urea Nitrogen 25 MG/DL 31 MG/DL Creatinine 2.96 MG/DL 3.08 MG/DL Random Glucose 175 MG/DL 207 MG/DL Calcium Level 8.4 MG/DL 8.5 MG/DL Magnesium Level 1.9 MG/DL 1.9 MG/DL Sodium Level 141 MEQ/L 140 MEQ/L Potassium Level 3.8 MEQ/L 4.2 MEQ/L Chloride Level 110 MEQ/L 111 MEQ/L Carbon Dioxide Level 20.0 MEQ/L 19.1 MEQ/L Anion Gap 11 MEQ/L 10 MEQ/L Estimat Glomerular Filtration Rate 20 ML/MIN 19 ML/MIN Free Thyroxine 1.61 NG/DL Thyroid Stimulating Hormone 3rd Gen 0.755 uIU/ML Microbiology Date/Time Source Procedure Growth Status 04/07/17 15:40 Urine Random Urine Streptococcus pneumoniae Antigen (M - Final PRESUMPTIVE NEGATIVE FOR STREPTOCOCCU... Complete 04/07/17 15:40 Urine Random Urine Streptococcus pneumoniae Antigen (M - Final PRESUMPTIVE NEGATIVE FOR STREPTOCOCCU... Complete Imaging Last Impressions Renal Ultrasound 04/07/17 0000 Signed Impressions: Service Date/Time: Friday, April 07, 2017 16:39 - CONCLUSION: Possible punctate nonobstructing renal calculi bilaterally. No evidence of hydronephrosis. Stanton Valdez MD Chest X-Ray 04/06/17 0800 Signed Impressions: Service Date/Time: Thursday, April 06, 2017 10:27 - CONCLUSION: Minimal nonspecific bibasilar parenchymal changes.. Jarad Powell MD FACR Brain MRI 04/06/17 0000 Signed Impressions: Service Date/Time: Thursday, April 06, 2017 16:34 - CONCLUSION: Large left sphenoid sinus air-fluid level and may represent acute sinusitis or may be due to intubation. Brain MRI otherwise within normal limits. Stanton Valdez MD Lumbar Puncture Fluoroscopy 04/04/17 0808 Signed Impressions: Service Date/Time: March 13:25 - CONCLUSION: Uncomplicated fluoroscopically guided lumbar puncture. Sj Lino MD Head CT 04/03/17 0000 Signed Impressions: Service Date/Time: Monday, April 03, 2017 22:02 - CONCLUSION: 1. No acute findings in the brain. 2. Left sphenoid sinus disease. Brandon Pope MD Physical Exam CONSTITUTIONAL/GENERAL: This is an obese female patient, in no apparent distress. TUBES/LINES/DRAINS: SKIN: No jaundice, rashes, or lesions. Ecchymoses on upper extremities. No wounds seen anteriorly. Skin temperature appropriate. Not diaphoretic. HEAD: Atraumatic. Normocephalic. EYES: Pupils equal and round and reactive. Extraocular motions intact. No scleral icterus. No injection or drainage. Fundi not examined. ENT: Hearing grossly normal. Nose without bleeding or purulent drainage. Throat without visible erythema, exudates, masses, or lesions. NECK: Trachea midline. neck better CARDIOVASCULAR: Regular rate and rhythm without murmurs, gallops, or rubs. No JVD. Peripheral pulses symmetric. RESPIRATORY/CHEST: Symmetric, unlabored respirations. Clear to auscultation. Breath sounds equal bilaterally. No wheezes, rales, or rhonchi. GASTROINTESTINAL: Abdomen soft, non-tender, nondistended. MUSCULOSKELETAL: Extremities without clubbing, cyanosis, or edema. No joint tenderness or effusion noted. No calf tenderness. No mottling or clubbing. NEUROLOGICAL: Awake and alert. Intact PSYCHIATRIC: No obvious anxiety/depression. no apparent hallucinations or other psychotic thought process. Assessment & Plan Remarks Probable bacterial meningitis, clx negative with prior abx use HSV PCR neg + abx use prior to LP neg angel luis antigen testing BC neg/ pneumococcal AG negative Acute non oliguric renal failure ? vancomycin Rec's: dc vancomycin (done) add vanco to AE list (renal impairment ) cont CFTX 2 gm q 12 to complete empirc 14 days treatmetn pt OK to have midline or PICC placed dw Dr Ang Harman,Davida Gu MD Apr 08, 2017 15:05
--- NOTE | 2017-04-08 16:56 | HHI.PR ---
Subjective Remarks sinus pain and h/a with stiff neck all resolved. urinating well. post nasal gtt with cough Objective Vitals heart reg lung cta abd s'nt ext no edema Vital Signs Date Time Temp Pulse Resp B/P (MAP) Pulse Ox O2 Delivery O2 Flow Rate FiO2 04/08/17 11:17 97.9 99 18 129/70 (89) 93 04/08/17 11:05 107 04/08/17 08:00 97.7 109 18 133/59 (83) 94 04/08/17 04:09 97.8 105 18 164/74 (104) 96 04/08/17 00:30 99.1 109 18 130/67 (88) 98 04/07/17 20:35 99.9 110 18 150/71 (97) 98 04/08/17 04/08/17 04/09/17 15:00 23:00 07:00 # Bowel Movements 1 Result Diagram: 04/08/17 0545 04/08/17 0545 Imaging Last Impressions Chest X-Ray 04/06/17 0800 Signed Impressions: Service Date/Time: Thursday, April 06, 2017 10:27 - CONCLUSION: Minimal nonspecific bibasilar parenchymal changes.. Jarad Powell MD FACR Brain MRI 04/06/17 0000 Signed Impressions: Service Date/Time: Thursday, April 06, 2017 16:34 - CONCLUSION: Large left sphenoid sinus air-fluid level and may represent acute sinusitis or may be due to intubation. Brain MRI otherwise within normal limits. Stanton Valdez MD Lumbar Puncture Fluoroscopy 04/04/17 0808 Signed Impressions: Service Date/Time: March 13:25 - CONCLUSION: Uncomplicated fluoroscopically guided lumbar puncture. Sj Lino MD Head CT 04/03/17 0000 Signed Impressions: Service Date/Time: Monday, April 03, 2017 22:02 - CONCLUSION: 1. No acute findings in the brain. 2. Left sphenoid sinus disease. Brandon Pope MD A/P Problem List: (1) Meningitis ICD Codes: G03.9 - Meningitis, unspecified Status: Acute Plan: - - 51-year-old female presented to [facility] with c/o intractable headache and neck stiffness - Pt empirically started on IV Rocephin, Vancomycin, and acyclovir following unsuccessful ER LP - Pt underwent Lumbar puncture with IR (04/04/17) - CSF WBC 3,713 - CSF Neutrophils 82 - CSF lactic acid 6.2 - CSF protein 201 - CSF negative bacterial antigen testing - CSF fungal --> NO fungal elements - CSF Cx --> NO growth - CSF Mycobacterium --> pending - CSF Acid Fast stain --> NO bacilli - CSF gram stain --> NO organisms; many WBCs - Blood Culture (04/04) --> NO growth to date - MRI brain (04/06) --> sinus disease left - pneumococcal urinary antigen -->negative - antimicrobials - acyclovir (04/04 - 04/06/17) - vancomycin (04/04 - 04/07) - Rocephin (04/04 - present) - Vancomycin stopped d/t rising creatinine and decreasing GFR - DVT prophylaxis with SCDs discussed with ID dr aHrman. She wants 2 weeks iv rocephin completed and ok with midline picc. suspected bacterial meningitis with sinus dz most likely source. cx's neg but had abx prior to cx's await improvement of jovany which is felt to be atn from vancomycin. (2) ARF (acute renal failure) ICD Codes: N17.9 - Acute kidney failure, unspecified Status: Acute Plan: most likely atn related from vancomycin alternatively could consider the iv toradol stable. monitor. renal following. (3) Sinus tachycardia ICD Codes: R00.0 - Tachycardia, unspecified Status: Acute Plan: - likely d/t disease process - stable. on low dose bb. (4) Diabetes mellitus ICD Codes: E11.9 - Type 2 diabetes mellitus without complications Status: Chronic Plan: - resume scheduled levemir as tolerated. hold oha due to jovany (5) HTN (hypertension) ICD Codes: I10 - Essential (primary) hypertension Status: Chronic Plan: - improved - procardia XL - prn vasotec/ prn catapress Problem Qualifiers (1) ARF (acute renal failure): Qualified Codes: N17.9 - Acute kidney failure, unspecified (2) Diabetes mellitus: Qualified Codes: E11.8 - Type 2 diabetes mellitus with unspecified complications; Z79.4 - long term (current) use of insulin (3) HTN (hypertension): Qualified Codes: I10 - Essential (primary) hypertension Raul Kebede MD Apr 08, 2017 16:56
[2017-04-09] VITALS (7 sets, daily range): BP systolic 141–176; BP diastolic 67–83; PULSE 96–104; RESP 16–18; TEMP 96.4–98.7; O2SAT 93–98
[2017-04-09] MEDS: cefTRIAXone INJ 2,000 MG in SODIUM CHLORIDE 0.9% INJ 100 ML IV SCH ×3 (00:02→23:40)
[2017-04-09] MEDS: guaiFENesin/CODEINE SYRUP 200 MG/20 MG/10 ML CUP PO PRN ×4 (01:03→20:10)
[2017-04-09 05:48] LABS: BICARBONATE 20.2 MEQ/L (21.0-32.0); CALCIUM 8.5 MG/DL (8.5-10.1); CREATININE 2.95 MG/DL (0.50-1.00)
[2017-04-09] MEDS: SODIUM CHLOR 0.9% 1000 ML INJ 1,000 ML IV SCH ×2 (06:31→17:29)
[2017-04-09] MEDS: LORATADINE 10 MG TAB PO SCH (08:51)
[2017-04-09] MEDS: NIFEdipine 60 MG SUSTAINED RELEASE TAB PO SCH (08:51)
[2017-04-09] MEDS: METOPROLOL TARTRATE 25 MG TAB PO SCH ×2 (08:51→20:05)
[2017-04-09] MEDS: INSULIN ASPART SUPPLEMENTAL SCALE SQ SCH ×4 (08:52→20:05)
--- NOTE | 2017-04-09 11:01 | HHI.PR ---
Subjective Remarks no h/a or stiff neck. Objective Vitals heart reg lung cta abd s/nt ext no edema Vital Signs Date Time Temp Pulse Resp B/P (MAP) Pulse Ox O2 Delivery O2 Flow Rate FiO2 04/09/17 08:00 97.1 98 17 176/79 (111) 98 04/09/17 04:00 98.4 100 16 157/83 (107) 97 04/09/17 00:00 96.9 100 17 156/75 (102) 96 04/08/17 20:00 96.2 110 18 136/85 (102) 97 04/08/17 11:17 97.9 99 18 129/70 (89) 93 04/08/17 11:05 107 Result Diagram: 04/08/17 0545 04/09/17 0441 Imaging Last Impressions Chest X-Ray 04/06/17 0800 Signed Impressions: Service Date/Time: Thursday, April 06, 2017 10:27 - CONCLUSION: Minimal nonspecific bibasilar parenchymal changes.. Jarad Powell MD FACR Brain MRI 04/06/17 0000 Signed Impressions: Service Date/Time: Thursday, April 06, 2017 16:34 - CONCLUSION: Large left sphenoid sinus air-fluid level and may represent acute sinusitis or may be due to intubation. Brain MRI otherwise within normal limits. Stanton Valdez MD Lumbar Puncture Fluoroscopy 04/04/17 0808 Signed Impressions: Service Date/Time: March 13:25 - CONCLUSION: Uncomplicated fluoroscopically guided lumbar puncture. Sj Lino MD Head CT 04/03/17 0000 Signed Impressions: Service Date/Time: Monday, April 03, 2017 22:02 - CONCLUSION: 1. No acute findings in the brain. 2. Left sphenoid sinus disease. Brandon Pope MD A/P Problem List: (1) Meningitis ICD Codes: G03.9 - Meningitis, unspecified Status: Acute Plan: - - 51-year-old female presented to [facility] with c/o intractable headache and neck stiffness - Pt empirically started on IV Rocephin, Vancomycin, and acyclovir following unsuccessful ER LP - Pt underwent Lumbar puncture with IR (04/04/17) - CSF WBC 3,713 - CSF Neutrophils 82 - CSF lactic acid 6.2 - CSF protein 201 - CSF negative bacterial antigen testing - CSF fungal --> NO fungal elements - CSF Cx --> NO growth - CSF Mycobacterium --> pending - CSF Acid Fast stain --> NO bacilli - CSF gram stain --> NO organisms; many WBCs - Blood Culture (04/04) --> NO growth to date - MRI brain (04/06) --> sinus disease left - pneumococcal urinary antigen -->negative - antimicrobials - acyclovir (04/04 - 04/06/17) - vancomycin (04/04 - 04/07) - Rocephin (04/04 - present) - Vancomycin stopped d/t rising creatinine and decreasing GFR - DVT prophylaxis with SCDs discussed with ID dr Harman. She wants 2 weeks iv rocephin completed and ok with midline picc. suspected bacterial meningitis with sinus dz most likely source. cx's neg but had abx prior to cx's await improvement of jovany which is felt to be atn from vancomycin. today the cr is 2.9...will plan to d/c home once we get more improvement of cr/gfr and ok with renal. updated pt and answered all questions. (2) ARF (acute renal failure) ICD Codes: N17.9 - Acute kidney failure, unspecified Status: Acute Plan: most likely atn related from vancomycin alternatively could consider the iv toradol stable. monitor. renal following. (3) Sinus tachycardia ICD Codes: R00.0 - Tachycardia, unspecified Status: Acute Plan: - likely d/t disease process - stable. on low dose bb. (4) Diabetes mellitus ICD Codes: E11.9 - Type 2 diabetes mellitus without complications Status: Chronic Plan: - resume scheduled levemir as tolerated. 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
[2017-04-09 16:58] LABS: LYME IGG IMMUNOBLOT CSF None Detected bands (None Detected); LYME IGM IMMUNOBLOT CSF None Detected bands (None Detected)
--- NOTE | 2017-04-09 17:30 | HHI.NPPN ---
Subjective History of Present Illness 51-year-old female with past medical history of diabetes mellitus, gastroesophageal reflux disease, chronic anemia who was admitted with severe head and neck pain. I was called to see the patient because of elevated BUN and creatinine. The patient has a creatinine of 0.8 to 0.7 on admission and it increased. Additional Remarks Patient is alert, no SOB, headache is better, no nausea, not eating much. Review of Systems General Constitutional: Fever, Fatigue Objective Data Data 04/09/17 04/10/17 19:00 07:00 Intake Total 600 ml Balance 600 ml Intake Oral 600 ml # Voids 4 # Bowel Movements 1 Vital Signs Date Time Temp Pulse Resp B/P (MAP) Pulse Ox O2 Delivery O2 Flow Rate FiO2 04/09/17 12:00 96.4 98 18 141/77 (98) 96 04/09/17 08:00 97.1 98 17 176/79 (111) 98 04/09/17 04:00 98.4 100 16 157/83 (107) 97 04/09/17 00:00 96.9 100 17 156/75 (102) 96 04/08/17 20:00 96.2 110 18 136/85 (102) 97 -: 04/08/17 0545 04/09/17 0441 Physical Exam General Appearance: No Acute Distress, Comfortable Eyes Eye Exam: Pupils Equal Throat Throat Exam: Oral Mucosa [place] & Moist Neck Neck Exam: Neck Supple Pulmonary Resp Exam: Clear Bilaterally, Breath Sounds Equal, No Distress, Decreased Bases Cardiology CV Exam: Regular, Normal Sinus Rhythm Gastrointestinal/Abdomen GI Exam: Soft, Non-Tender, Bowel Sounds Present Extremeties Extremities Exam: Trace Edema Neurologic Neuro Exam: Alert, Awake, Oriented Psychiatric Psych Exam: Appropriate Responses Assessment/Plan Assessment Summary: ROZ/Acute Renal Failure Problem List: (1) Neck stiffness ICD Codes: M43.6 - Torticollis Status: Acute (2) Generalized weakness ICD Codes: R53.1 - Generalized weakness Status: Acute (3) Diabetes mellitus ICD Codes: E11.9 - Type 2 diabetes mellitus without complications Status: Chronic (4) Leukocytosis ICD Codes: D72.829 - Leukocytosis Status: Acute (5) HTN (hypertension) ICD Codes: I10 - Essential (primary) hypertension Status: Chronic (6) Meningitis ICD Codes: G03.9 - Meningitis, unspecified Status: Acute (7) ARF (acute renal failure) ICD Codes: N17.9 - Acute kidney failure, unspecified Status: Acute Plan Patient admitted with Meningitis and develop ROZ. Has no Eosinophiluria. Urine protein is minimal./ Vanco. level was elevated. Now on Ceftriaxone. Renal U/S noted. BUN and Creatinine are almost same. Non oliguric. Continue IVF, avoid Nephrotoxins. Follow the BMP. 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
[2017-04-09] MEDS: ACETAMINOPHEN/HYDROcodone 325 MG/5 MG TAB PO PRN (23:40)
[2017-04-10] VITALS (7 sets, daily range): BP systolic 120–189; BP diastolic 60–83; PULSE 90–102; RESP 17–19; TEMP 97.2–98.3; O2SAT 90–99
[2017-04-10] MEDS: SODIUM CHLOR 0.9% 1000 ML INJ 1,000 ML IV SCH ×3 (02:37→21:07)
[2017-04-10] MEDS: guaiFENesin/CODEINE SYRUP 200 MG/20 MG/10 ML CUP PO PRN ×3 (04:54→19:39)
[2017-04-10] MEDS: ACETAMINOPHEN/HYDROcodone 325 MG/5 MG TAB PO PRN (04:54)
[2017-04-10 06:11] LABS: BICARBONATE 20.3 MEQ/L (21.0-32.0); CALCIUM 8.4 MG/DL (8.5-10.1); CREATININE 2.72 MG/DL (0.50-1.00)
[2017-04-10] MEDS: LORATADINE 10 MG TAB PO SCH (08:13)
[2017-04-10] MEDS: METOPROLOL TARTRATE 25 MG TAB PO SCH ×2 (08:13→19:38)
[2017-04-10] MEDS: NIFEdipine 60 MG SUSTAINED RELEASE TAB PO SCH (08:13)
[2017-04-10] MEDS: INSULIN ASPART SUPPLEMENTAL SCALE SQ SCH ×4 (08:18→19:41)
--- NOTE | 2017-04-10 09:51 | HHI.PR ---
Subjective Remarks doing ok. mild h/a last night. urinating ok. Objective Vitals heart reg lung cta abd s/nt ext no edema picc midline Vital Signs Date Time Temp Pulse Resp B/P (MAP) Pulse Ox O2 Delivery O2 Flow Rate FiO2 04/10/17 07:52 97.7 102 19 120/60 (80) 90 04/10/17 04:54 98.3 96 18 149/71 (97) 99 04/10/17 01:00 97.2 98 18 179/81 (113) 97 04/09/17 21:55 97.5 104 18 145/67 (93) 98 04/09/17 20:48 99 04/09/17 16:00 98.7 96 16 145/76 (99) 93 04/09/17 12:00 96.4 98 18 141/77 (98) 96 Result Diagram: 04/08/17 0545 04/10/17 0525 Imaging Last Impressions Chest X-Ray 04/06/17 0800 Signed Impressions: Service Date/Time: Thursday, April 06, 2017 10:27 - CONCLUSION: Minimal nonspecific bibasilar parenchymal changes.. Jarad Powell MD FACR Brain MRI 04/06/17 0000 Signed Impressions: Service Date/Time: Thursday, April 06, 2017 16:34 - CONCLUSION: Large left sphenoid sinus air-fluid level and may represent acute sinusitis or may be due to intubation. Brain MRI otherwise within normal limits. Stanton Valdez MD Lumbar Puncture Fluoroscopy 04/04/17 0808 Signed Impressions: Service Date/Time: March 13:25 - CONCLUSION: Uncomplicated fluoroscopically guided lumbar puncture. Sj Lino MD Head CT 04/03/17 0000 Signed Impressions: Service Date/Time: Monday, April 03, 2017 22:02 - CONCLUSION: 1. No acute findings in the brain. 2. Left sphenoid sinus disease. Brandon Pope MD A/P Problem List: (1) Meningitis ICD Codes: G03.9 - Meningitis, unspecified Status: Acute Plan: - - 51-year-old female presented to [facility] with c/o intractable headache and neck stiffness - Pt empirically started on IV Rocephin, Vancomycin, and acyclovir following unsuccessful ER LP - Pt underwent Lumbar puncture with IR (04/04/17) - CSF WBC 3,713 - CSF Neutrophils 82 - CSF lactic acid 6.2 - CSF protein 201 - CSF negative bacterial antigen testing - CSF fungal --> NO fungal elements - CSF Cx --> NO growth - CSF Mycobacterium --> pending - CSF Acid Fast stain --> NO bacilli - CSF gram stain --> NO organisms; many WBCs - Blood Culture (04/04) --> NO growth to date - MRI brain (04/06) --> sinus disease left - pneumococcal urinary antigen -->negative - antimicrobials - acyclovir (04/04 - 04/06/17) - vancomycin (04/04 - 04/07) - Rocephin (04/04 - present) - Vancomycin stopped d/t rising creatinine and decreasing GFR - DVT prophylaxis with SCDs discussed with ID dr Harman. She wants 2 weeks iv rocephin completed and ok with midline picc. suspected bacterial meningitis with sinus dz most likely source. cx's neg but had abx prior to cx's await improvement of jovany which is felt to be atn from vancomycin. today the cr is trending down to 2.7... If gfr/cr continue to trend in favorable direction by tomorrow...then we may be able to d/c her on 04/[address] Grace will place hhc and abx orders no chart. (2) ARF (acute renal failure) ICD Codes: N17.9 - Acute kidney failure, unspecified Status: Acute Plan: most likely atn related from vancomycin alternatively could consider the iv toradol stable. monitor. renal following. (3) Sinus tachycardia ICD Codes: R00.0 - Tachycardia, unspecified Status: Acute Plan: - likely d/t disease process - stable. on low dose bb. (4) Diabetes mellitus ICD Codes: E11.9 - Type 2 diabetes mellitus without complications Status: Chronic Plan: - resume scheduled levemir as tolerated. 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
--- NOTE | 2017-04-10 09:59 | HHI.FF ---
Infusion Therapy Location of Infusion Therapy: Home Health Care IV Infusion Order Patient Information Patient Weight 100.6 kg Diagnosis: Coded Allergies: No Known Allergies (Verified Allergy, Unknown, 04/05/17) Administer Medication Ceftriaxone 2 grams IV q 12 hours Start Treatment: Apr 12, 2017 Stop Treatment: Apr 18, 2017 Additional Information Venous access: PICC Line Additional Instructions [x] Peripheral flush and dressing changes per protocol [x] Implanted port and central online journalist: * Implanted port: 10 ml Normal Saline followed by 5 ml Heparin 100 units/ml Heparin flush after each use and monthly to maintain. [] May leave port accessed during therapy. [] May leave peripheral site accessed for duration of therapy. [x] If patient has SOB or respiratory distress, check oxygen saturation. If less than 90% or clinical signs of respiratory distress, administer oxygen at 2 L/min. via nasal cannula and notify physician. [x] Anaphylaxis/Reaction orders: * Stop infusion. * Keep IV line open with saline flush. * Notify physician. * Monitor vital signs every 15 minutes until symptoms resolve. * Check Oxygen saturation; Oxygen at 2 L/min. via nasal cannula if less than 90% or clinical signs of respiratory distress. * Administer diphenhydramine (Benadryl) 25 mg IV STAT, (unless patient has received as pre-med). May repeat once, if necessary. * Solu-Cortef 250 mg IVP over 30-60 seconds, use 100 mg vials for each dissolution. * Epinephrine (1mg/1 ml) 0.3 mg subcutaneously or IVP now with any signs of respiratory distress. * Check with physician for new additional pre-med orders if patient is re- challenged or re-treated. [x] May remove PICC line when treatment complete, after confirming with Physician. [x] If the patient is admitted to the hospital, the ED, or transferred via [facility] , complete transfer form including medication reconciliation order sheet. Laboratory Tests Weekly Labs: BMP, CBC w/diff Additional Information send labs to Dr Grace Renal and pcp Raul Luevano MD Apr 10, 2017 09:59
[2017-04-10] MEDS: cefTRIAXone INJ 2,000 MG in SODIUM CHLORIDE 0.9% INJ 100 ML IV SCH (12:47)
--- NOTE | 2017-04-10 12:56 | HHI.FF ---
Face to Face Verification Diagnosis: (1) Meningitis (2) ARF (acute renal failure) Home Health Nursing Order: Medical education Signs/symptoms of disease process Medication education-adverse effect Nursing assessment with vital signs IV medication administration I have seen patient Cristo Will on 04/10/17. My clinical findings support the need for the requested home health care services because: Infection w/ risk of complications I certify that my clinical findings support that this patient is homebound because: Need for psychosocial assistance Raul Kebede MD Apr 10, 2017 12:56
--- NOTE | 2017-04-10 16:07 | HHI.NPPN ---
Subjective History of Present Illness 51-year-old female with past medical history of diabetes mellitus, gastroesophageal reflux disease, chronic anemia who was admitted with severe head and neck pain. I was called to see the patient because of elevated BUN and creatinine. The patient has a creatinine of 0.8 to 0.7 on admission and it increased. Additional Remarks Patient is alert, no SOB, headache is better, started eating better, not in distress. Review of Systems General Constitutional: Fever, Fatigue Objective Data Data 04/10/17 04/11/17 19:00 07:00 Intake Total 900 ml Balance 900 ml Intake Oral 900 ml # Voids 5 # Bowel Movements 1 Vital Signs Date Time Temp Pulse Resp B/P (MAP) Pulse Ox O2 Delivery O2 Flow Rate FiO2 04/10/17 15:39 97.2 95 19 136/77 (96) 97 04/10/17 11:33 97.8 90 19 144/70 (94) 95 04/10/17 07:52 97.7 102 19 120/60 (80) 90 04/10/17 04:54 98.3 96 18 149/71 (97) 99 04/10/17 01:00 97.2 98 18 179/81 (113) 97 04/09/17 21:55 97.5 104 18 145/67 (93) 98 04/09/17 20:48 99 -: 04/08/17 0545 04/10/17 0525 Physical Exam General Appearance: No Acute Distress, Comfortable Eyes Eye Exam: Pupils Equal Throat Throat Exam: Oral Mucosa [place] & Moist Neck Neck Exam: Neck Supple Pulmonary Resp Exam: Clear Bilaterally, Breath Sounds Equal, No Distress, Decreased Bases Cardiology CV Exam: Regular, Normal Sinus Rhythm Gastrointestinal/Abdomen GI Exam: Soft, Non-Tender, Bowel Sounds Present Extremeties Extremities Exam: Trace Edema Neurologic Neuro Exam: Alert, Awake, Oriented Psychiatric Psych Exam: Appropriate Responses Assessment/Plan Assessment Summary: ROZ/Acute Renal Failure Problem List: (1) Neck stiffness ICD Codes: M43.6 - Torticollis Status: Acute (2) Generalized weakness ICD Codes: R53.1 - Generalized weakness Status: Acute (3) Diabetes mellitus ICD Codes: E11.9 - Type 2 diabetes mellitus without complications Status: Chronic (4) Leukocytosis ICD Codes: D72.829 - Leukocytosis Status: Acute (5) HTN (hypertension) ICD Codes: I10 - Essential (primary) hypertension Status: Chronic (6) Meningitis ICD Codes: G03.9 - Meningitis, unspecified Status: Acute (7) ARF (acute renal failure) ICD Codes: N17.9 - Acute kidney failure, unspecified Status: Acute Plan Patient admitted with Meningitis and develop ROZ. Has no Eosinophiluria. Urine protein is minimal./ Vanco. level was elevated. Now on Ceftriaxone. Renal U/S noted. BUN and Creatinine started improving. Non oliguric. Continue IVF, avoid Nephrotoxins. K is normal, follow the urine out put and BMP. Problem Qualifiers (1) Diabetes mellitus: Qualified Codes: E11.8 - Type 2 diabetes mellitus with unspecified complications; Z79.4 - [facility] (current) use of insulin (2) Leukocytosis: Qualified Codes: D72.829 - Elevated white blood cell count, unspecified (3) HTN (hypertension): Qualified Codes: I10 - Essential (primary) hypertension (4) ARF (acute renal failure): Qualified Codes: N17.9 - Acute kidney failure, unspecified Nellie Grace MD Apr 10, 2017 16:07
[2017-04-11] VITALS (11 sets, daily range): BP systolic 146–182; BP diastolic 70–85; PULSE 83–98; RESP 16–18; TEMP 96.8–99.2; O2SAT 95–98
[2017-04-11] MEDS: cefTRIAXone INJ 2,000 MG in SODIUM CHLORIDE 0.9% INJ 100 ML IV SCH ×2 (00:11→18:02)
[2017-04-11 06:45] LABS: BICARBONATE 18.9 MEQ/L (21.0-32.0); CALCIUM 8.4 MG/DL (8.5-10.1); CREATININE 2.44 MG/DL (0.50-1.00)
[2017-04-11] MEDS: SODIUM CHLORIDE 0.9% FLUSH 10 ML FLUSH IVF PRN (08:55)
[2017-04-11] MEDS: NIFEdipine 60 MG SUSTAINED RELEASE TAB PO SCH (08:55)
[2017-04-11] MEDS: METOPROLOL TARTRATE 25 MG TAB PO SCH (08:55)
[2017-04-11] MEDS: SODIUM CHLOR 0.9% 1000 ML INJ 1,000 ML IV SCH ×2 (08:55→18:01)
[2017-04-11] MEDS: LORATADINE 10 MG TAB PO SCH (08:56)
[2017-04-11] MEDS: guaiFENesin/CODEINE SYRUP 200 MG/20 MG/10 ML CUP PO PRN (08:58)
[2017-04-11] MEDS: INSULIN ASPART SUPPLEMENTAL SCALE SQ SCH ×3 (09:16→17:12)
[2017-04-11] MEDS ORDERED: NIFE60TA8 PO (11:19)
--- NOTE | 2017-04-11 11:24 | HHI.DCPOC ---
Discharge Care Plan Diagnosis: (1) Meningitis (2) ARF (acute renal failure) Goals to Promote Your Health * To prevent worsening of your condition and complications * To maintain your health at the optimal level Directions to Meet Your Goals Take your medications as prescribed Follow your dietary instruction Follow activity as directed Keep your appointments as scheduled Take your immunizations and boosters as scheduled If your symptoms worsen call your PCP, if no PCP go to Urgent Care Center or Emergency Room Smoking is Dangerous to Your Health. Avoid second hand smoke Call the 24-hour hour crisis hotline for domestic abuse at Raul Kebede MD Apr 11, 2017 11:24
--- NOTE | 2017-04-11 11:26 | HHI.DS ---
Discharge Summary Admission Date Apr 05, 2017 at 10:34 Discharge Date: Apr 11, 2017 Admitting Diagnosis Intractable headache/neck stiffness, leukocytosis (1) Meningitis Diagnosis: Principal ICD Codes: G03.9 - Meningitis, unspecified Status: Acute (2) ARF (acute renal failure) Diagnosis: Principal ICD Codes: N17.9 - Acute kidney failure, unspecified Status: Acute (3) Sinus tachycardia Diagnosis: Principal ICD Codes: R00.0 - Tachycardia, unspecified Status: Acute (4) Diabetes mellitus Diagnosis: Secondary ICD Codes: E11.9 - Type 2 diabetes mellitus without complications Status: Chronic (5) HTN (hypertension) Diagnosis: Secondary ICD Codes: I10 - Essential (primary) hypertension Status: Chronic Brief History This is a 51-year-old female patient with past medical history which includes diabetes mellitus on insulin and pills, GERD, obesity and anemia. Patient was brought in by ambulance for evaluation of severe headache. Patient reports that the headache started suddenly at around 3:00 PM on 04/03/2017. She reported severe diffuse head pressure as well as neck stiffness. Pain is constant, worse with movements, associated with photophobia and nausea. She is unsure if she has had fever. She was seen in the Emergency Department 9 days ago and was diagnosed with a viral illness. At that time patient had chills, fever, nausea and vomiting. She does not usually get headaches and has no history of migraines. 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 CBC/BMP: 04/08/17 0545 04/11/17 0504 Significant Findings Laboratory Tests Test 04/09/17 04:41 04/10/17 05:25 04/11/17 05:04 Blood Urea Nitrogen 33 MG/DL (7-18) 29 MG/DL (7-18) 24 MG/DL (7-18) Creatinine 2.95 MG/DL (0.50-1.00) 2.72 MG/DL (0.50-1.00) 2.44 MG/DL (0.50-1.00) Random Glucose 168 MG/DL (74-106) 192 MG/DL (74-106) 180 MG/DL (74-106) Chloride Level 113 MEQ/L (98-107) 110 MEQ/L (98-107) 111 MEQ/L (98-107) Carbon Dioxide Level 20.2 MEQ/L (21.0-32.0) 20.3 MEQ/L (21.0-32.0) 18.9 MEQ/L (21.0-32.0) Estimat Glomerular Filtration Rate 20 ML/MIN (>89) 22 ML/MIN (>89) 25 ML/MIN (>89) Calcium Level 8.4 MG/DL (8.5-10.1) 8.4 MG/DL (8.5-10.1) Hospital Course (1) Meningitis - 51-year-old female presented to [place] [facility] with c/o intractable headache and neck stiffness - Pt empirically started on IV Rocephin, Vancomycin, and acyclovir following unsuccessful ER LP - Pt underwent Lumbar puncture with IR (04/04/17) - CSF WBC 3,713 - CSF Neutrophils 82 - CSF lactic acid 6.2 - CSF protein 201 - CSF negative bacterial antigen testing - CSF fungal --> NO fungal elements - CSF Cx --> NO growth - CSF Mycobacterium --> pending - CSF Acid Fast stain --> NO bacilli - CSF gram stain --> NO organisms; many WBCs - Blood Culture (04/04) --> NO growth to date - MRI brain (04/06) --> sinus disease left - pneumococcal urinary antigen -->negative - antimicrobials - acyclovir (04/04 - 04/06/17) - vancomycin (04/04 - 04/07) - Rocephin (04/04 - present) - Vancomycin stopped d/t rising creatinine and decreasing GFR - DVT prophylaxis with SCDs discussed with ID dr Harman. She wants 2 weeks iv rocephin completed and ok with midline picc. suspected bacterial meningitis with sinus dz most likely source. cx's neg but had abx prior to cx's await improvement of jovany which is felt to be atn from vancomycin. today cr trending further down and pt urinating very well. cr 2.4...spoke to renal and pcp and we will d/c her today and have c check cr and send to offices for review. (2) ARF (acute renal failure) ICD Codes: N17.9 - Acute kidney failure, unspecified Status: Acute Plan: most likely atn related from vancomycin alternatively could consider the iv toradol stable. monitor. renal following. (3) Sinus tachycardia ICD Codes: R00.0 - Tachycardia, unspecified Status: Acute Plan: - likely d/t disease process - stable. (4) Diabetes mellitus ICD Codes: E11.9 - Type 2 diabetes mellitus without complications Status: Chronic Plan: - resume scheduled levemir as tolerated. hold oha due to jovany (5) HTN (hypertension) ICD Codes: I10 - Essential (primary) hypertension Status: Chronic Plan: - improved - procardia XL - prn vasotec/ prn catapress Pt Condition on Discharge: Stable Discharge Disposition: Disch w/ Home Health Serv Discharge Instructions DIET: Follow Instructions for: Diabetic Diet Activities you can perform: Regular-No Restrictions Follow up Referrals: Nephrology - [address] diaz PCP Follow-up - [address] choudhary New Medications: Nifedipine ER 24 HR (Nifedipine ER 24 HR) 60 Mg Tab 60 MG PO DAILY for Blood Pressure Management, #30 TAB 3 Refills Continued Medications: Insulin Aspart Inj (Novolog Inj) 1,000 Unit/10 Ml Vial 0 SQ DIRECTED for Blood Sugar Management, ML 0 Refills Sliding Scale as directed. Insulin Detemir Inj (Levemir Inj) 1,000 unit/ 10 ML Vial 42 UNITS SQ DAILY for Blood Sugar Management, VIAL 0 Refills Do not mix with any other Insulin. [triseba] () UNIT SQ WEEKLY Discontinued Medications: Azithromycin (Zithromax Z-Alexey) 250 Mg Dspk 250 MG PO DIRECTED for Infection, #1 DSPK 0 Refills 500 MG (2 tabs) day 1, then 1 tab days 2-5. Metformin (Metformin) 500 Mg Tab 500 MG PO BIDPC for Blood Sugar Management, TAB 0 Refills With meals Raul Kebede MD Apr 11, 2017 11:26
--- NOTE | 2017-04-11 16:57 | HHI.NPPN ---
Subjective History of Present Illness 51-year-old female with past medical history of diabetes mellitus, gastroesophageal reflux disease, chronic anemia who was admitted with severe head and neck pain. I was called to see the patient because of elevated BUN and creatinine. The patient has a creatinine of 0.8 to 0.7 on admission and it increased. Additional Remarks Patient is alert, no SOB, headache is better, getting ready for discharge. Review of Systems General Constitutional: Fever, Fatigue Objective Data Data 04/11/17 04/12/17 19:00 07:00 Intake Total 1397 ml Balance 1397 ml IV Total 1397 ml Vital Signs Date Time Temp Pulse Resp B/P (MAP) Pulse Ox O2 Delivery O2 Flow Rate FiO2 04/11/17 15:50 93 04/11/17 13:54 98 04/11/17 12:00 96.8 87 17 150/74 (99) 95 04/11/17 11:48 83 04/11/17 08:08 83 04/11/17 08:00 98.0 87 18 148/85 (106) 96 04/11/17 06:40 83 04/11/17 04:15 98.3 88 16 182/75 (110) 96 04/11/17 00:05 99.2 95 16 173/77 (109) 98 04/10/17 22:32 94 04/10/17 20:17 97.9 100 17 189/83 (118) 98 -: 04/08/17 0545 04/11/17 0504 Physical Exam General Appearance: No Acute Distress, Comfortable Eyes Eye Exam: Pupils Equal Throat Throat Exam: Oral Mucosa Shallow Water & Moist Neck Neck Exam: Neck Supple Pulmonary Resp Exam: Clear Bilaterally, Breath Sounds Equal, No Distress, Decreased Bases Cardiology CV Exam: Regular, Normal Sinus Rhythm Gastrointestinal/Abdomen GI Exam: Soft, Non-Tender, Bowel Sounds Present Extremeties Extremities Exam: Trace Edema Neurologic Neuro Exam: Alert, Awake, Oriented Psychiatric Psych Exam: Appropriate Responses Assessment/Plan Assessment Summary: ROZ/Acute Renal Failure Problem List: (1) Neck stiffness ICD Codes: M43.6 - Torticollis Status: Acute (2) Generalized weakness ICD Codes: R53.1 - Generalized weakness Status: Acute (3) Diabetes mellitus ICD Codes: E11.9 - Type 2 diabetes mellitus without complications Status: Chronic (4) Leukocytosis ICD Codes: D72.829 - Leukocytosis Status: Acute (5) HTN (hypertension) ICD Codes: I10 - Essential (primary) hypertension Status: Chronic (6) Meningitis ICD Codes: G03.9 - Meningitis, unspecified Status: Acute (7) ARF (acute renal failure) ICD Codes: N17.9 - Acute kidney failure, unspecified Status: Acute Plan Patient admitted with Meningitis and develop ROZ. Has no Eosinophiluria. Urine protein is minimal./ Vanco. level was elevated. Now on Ceftriaxone. Renal U/S noted. BUN and Creatinine continue to improve. Non oliguric. Now for D/C, follow up with me in 2 weeks. Patient will call for appointment. Problem Qualifiers (1) Diabetes mellitus: Qualified Codes: E11.8 - Type 2 diabetes mellitus with unspecified complications; Z79.4 - prison (current) use of insulin (2) Leukocytosis: Qualified Codes: D72.829 - Elevated white blood cell count, unspecified (3) HTN (hypertension): Qualified Codes: I10 - Essential (primary) hypertension (4) ARF (acute renal failure): Qualified Codes: N17.9 - Acute kidney failure, unspecified Nellie Garce MD Apr 11, 2017 16:57
[2017-04-11 17:53] LABS: VDRL CSF NON-REACTIVE (NON-REACTVE)
[2017-04-11] MEDS ORDERED: CEFT2INJ2 IV (18:36)
== END 2017-04-11 20:14 | disposition home health service (06) | DRG 94 ==
LOC: NEDAMB 16:44 → NEDA 04-04 00:20 → NEDH 04-04 04:42 → NEPFCDU 04-04 16:23 → OBSVTOIN 04-05 10:34 → N06A 04-05 15:16
PROVIDERS: ADMIT Hospitalist; ATTEND Hospitalist
PROC: 009U3ZX Drainage of Spinal Canal, Percutaneous Approach, Diagnostic (ICD-10-PCS; principal; 2017-04-04)
PROC: BR19ZZZ Fluoroscopy of Lumbar Spine (ICD-10-PCS; 2017-04-04)
PROC: 05H533Z Insertion of Infusion Device into Right Subclavian Vein, Percutaneous Approach (ICD-10-PCS; 2017-04-09)
PROC: B546ZZA Ultrasonography of Right Subclavian Vein, Guidance (ICD-10-PCS; 2017-04-09)
DX: G00.9 Bacterial meningitis, unspecified (principal); N17.0 Acute kidney failure with tubular necrosis; E11.9 Type 2 diabetes mellitus without complications; Z79.4 Long term (current) use of insulin; Z79.84 Long term (current) use of oral hypoglycemic drugs; N14.1 Nephropathy induced by other drugs, medicaments and biological substances; T36.8X5A Adverse effect of other systemic antibiotics, initial encounter; Y92.238 Other place in hospital as the place of occurrence of the external cause; I10 Essential (primary) hypertension; D64.9 Anemia, unspecified; J32.3 Chronic sphenoidal sinusitis; E66.9 Obesity, unspecified; Z68.39 Body mass index [BMI] 39.0-39.9, adult; K21.9 Gastro-esophageal reflux disease without esophagitis; R00.0 Tachycardia, unspecified; Z23 Encounter for immunization
CPT/HCPCS: 36569; 62270; 70450; 70553; 71020; 76775; 76937; 77003; 80048; 80053; 80202; 81001; 82010; 82040; 82042; 82164; 82784; 82948; 83605; 83615; 83735; 83873; 84157; 84439; 84443; 84702; 85025; 85610; 85730; 86403; 86592; 86618; 86780; 87015; 87040; 87070; 87102; 87116; 87205; 87206; 87449; 87497; 87498; 87529; 87801; 87804; 88173; 89051; 90686; 96361; 96365; 96366; 96367; 96368; 96372; 96375; 96376; A9579; G0378; J0133; J0696; J1815; J1885; J2060; J2270; J2405; J2765; J3370; J7030; J7040; Q2038